=== PATIENT | male | born 1955 | race Caucasian/White ===

== ENCOUNTER 2024-11-09 05:17 | Inpatient (IN) | payer MEDICARE, SELFPAY ==
[2024-11-07 08:33] VITALS: BMI 30.2
[2024-11-07 09:29] LABS: % Basophils 0.5 % (0-2); % Eosinophils 3.4 % (0-6); % Immature Granulocytes 0.2 % (0-0.5); % Lymphocytes 15.6 % (20.5-51.1); % Neutrophils 71.3 % (42.2-75.2); Absolute Eosinophils 0.3 10^3/uL (0-0.7); Absolute Lymphocytes 1.3 10^3/uL (1.2-3.4); Absolute Monocytes 0.7 10^3/uL (0.1-0.6); Absolute Neutrophils 5.8 10^3/uL (1.4-6.5); Hematocrit 42.9 % (39.0-52.0); Hemoglobin 14.5 g/dL (13.0-18.0); Mean Corp Hgb Conc. 33.8 g/dL (33.0-37.0); Mean Corpuscular Hgb 29.8 pg (27.0-31.0); Mean Corpuscular Volume 88.3 fL (80.0-94.0); Nucleated Red Blood Cells % 0 % (-); Platelet Count 210 10^3/uL (130-400); Red Blood Cell Count 4.86 10^6/uL (4.70-6.10); Red Cell Dist. Width 13.1 % (11.5-14.5); White Blood Cell Count 8.1 10^3/uL (4.8-10.8)
[2024-11-07 09:33] LABS: Urine Albumin Negative (Neg - Trace); Urine Bilirubin Negative (Negative); Urine Character Clear (Clear); Urine Color Yellow; Urine Glucose Negative (Negative); Urine Ketone Negative (Negative); Urine Leukocyte 3+ (Negative); Urine Nitrite Negative (Negative); Urine Occult Blood Negative (Negative); Urine Urobilinogen Negative (Neg - 1+)
[2024-11-07 09:36] LABS: INR 0.92; PT 12.8 Sec (11.4-14.6)
[2024-11-07 09:37] LABS: APTT 30.7 Sec (23.4-35.0)
[2024-11-07 09:46] LABS: ALT (SGPT) 47 U/L (0-50); AST (SGOT) 23 U/L (17-59); Albumin 4.5 g/dl (3.5-5.0); Alkaline Phosphatase 76 U/L (38-126); Blood Urea Nitrogen 25 mg/dl (9-20); Calcium 9.3 mg/dl (8.4-10.2); Carbon Dioxide 25 mmol/L (22-30); Chloride 108 mmol/L (98-107); Estimated Creatinine Clearance 85 ml/min; Glucose 104 mg/dl (70-99); Potassium 4.4 mmol/L (3.5-5.1); Sodium 143 mmol/L (135-145); Total Bilirubin 0.8 mg/dl (0.2-1.3); Total Protein 6.7 g/dl (6.3-8.2); eGFR > 60.00
[2024-11-07 10:17] LABS: Direct Bilirubin 0.2 mg/dl (0.0-0.4)
--- NOTE | 2024-11-07 10:23 | CM ---
Met with and Mrs. Miles in [facility]. He states prior to admission he resides with his spouse in a three story townhouse with eleven steps to enter the home. He states he has a full flight of steps to get to bedroom/full bathroom. He states he
has to go down a full flight of steps to get to the powder room. He states prior to admission he was independent with ambulation and adls. He states he does not have any DME in the home. He states he has a prescription plan and uses [facility].
His spouse states she is planning on working from home for two weeks to assist in his care if needed when he goes home. Medical work-up in progress. The discharge plan is to return home with his spouse and a home visit by the Transitional Care
Nurse if in their catchment area or [facility] when medically stable.
We reviewed pre-op and post-op routines. We reviewed the shower instructions. He has the soap, written instructions and the Cardiothoracic Surgery Educational Booklet. We reviewed restrictions including sternal precautions and driving
restrictions. We also discussed a home visit by the Transitional Care Nurse. He is agreeable to a home visit. The plan is for CABG on Tuesday11/09/24.
[2024-11-07 11:03] LABS: Urine Bacteria Few (Negative); Urine Epithelial Cast 0-2 /LPF; Urine Mucus Few; Urine Red Blood Cell 0-2 /HPF (0-2)
[2024-11-07 11:47] LABS: Glycohemoglobin (HgbA1c) 5.6 % (4.0-5.6)
[2024-11-07 14:07] LABS: Urine Squamous Cell 0-2 /LPF (Few)
[2024-11-09] VITALS (7 sets, daily range): BP systolic 93–201; BP diastolic 61–101; BMI 28.0
[2024-11-09] MEDS: PROTONIX 40 MG PO (05:36)
[2024-11-09] MEDS: MAGNESIUM OXIDE 500 MG PO (05:37)
[2024-11-09] MEDS: LOPRESSOR 25 MG PO (05:38)
[2024-11-09] MEDS: BACTROBAN 2% OINTMENT 1 APPLIC NASAL ×2 (05:38→19:53)
--- NOTE | 2024-11-09 06:17 | W.CVOR.SURPR ---
CVOR Surgeon Immed Pre Op
-
I have examined this patient prior to performance of the scheduled procedure.
The patient's condition is unchanged from the time of the dictated/written History and
Physical and the patient is able to undergo the scheduled procedure.
CABG + Radial
--- NOTE | 2024-11-09 06:42 | PTCARENOTE ---
Patient arrived at 0500. Asked admission questions, clipped and prepped patient, preop medications administered. Patient transferred over to CVOR at 0630.
[2024-11-09 07:15] LABS: ACT+ - POC 93 Seconds (82-134)
[2024-11-09 07:19] LABS: B.E. - POC 0.9 mmol/L; Glucose - POC 116 mg/dl (70-99); HCO3 - POC 26 mmol/L (21-28); Hematocrit - POC 38 % PCV (42-52); Hemodilution- POC No; Hemoglobin Calculated - POC 12.9; Ionized Calcium - POC 1.21 mmol/L (1.15-1.33); O2 Saturation %Calculated-POC 99.1 % (94-98); PCO2 - POC 42 mmHg (35-48); PO2 - POC 136 mmHg (83-108); Sodium - POC 145 mmol/L (136-145); Specimen Type - POC Arterial
[2024-11-09 07:27] LABS: Urine Albumin Negative (Neg - Trace); Urine Bilirubin Negative (Negative); Urine Character Clear (Clear); Urine Color Yellow; Urine Glucose Negative (Negative); Urine Ketone Negative (Negative); Urine Leukocyte 3+ (Negative); Urine Nitrite Negative (Negative); Urine Occult Blood 1+ (Negative); Urine Urobilinogen Negative (Neg - 1+)
[2024-11-09 07:51] LABS: Urine Bacteria Moderate (Negative); Urine Red Blood Cell 0-2 /HPF (0-2); Urine White Cell 16-20 /HPF (0-5)
[2024-11-09 07:52] LABS: Urine Amorphous Seen
--- NOTE | 2024-11-09 08:35 | CM ---
Reviewed chart. Mr. Miles is in the operating room today. Prior to admission he resides with his spouse in a three story townhouse with eleven steps to enter. He has a full flight of steps to get to bedroom/full bathroom. He has a flight of
steps to go down to the powder room. Prior to admission he was independent with ambulation and adls. He does not have any DME in the home. He has a prescription plan and uses [facility]. His spouse is planning to signal worker for two weeks when
he goes home to assist in his care if needed. Medical work-up in progress. The discharge plan is to return home with his spouse and a home visit by the Transitional Care Nurse if in their catchment area or [facility] when medically stable.
[2024-11-09 09:26] LABS: ACT+ - POC 534 Seconds (82-134)
[2024-11-09 10:00] LABS: ACT+ - POC 552 Seconds (82-134)
[2024-11-09 10:26] LABS: ACT+ - POC 516 Seconds (82-134)
[2024-11-09 10:49] LABS: B.E. - POC 4.5 mmol/L; Glucose - POC 209 mg/dl (70-99); HCO3 - POC 31 mmol/L (21-28); Hematocrit - POC 32 % PCV (42-52); Hemodilution- POC Yes; Ionized Calcium - POC 1.09 mmol/L (1.15-1.33); Lactate - POC 0.72 mmol/L (0.36-0.75); O2 Saturation %Calculated-POC 99.8 % (94-98); PCO2 - POC 51 mmHg (35-48); PO2 - POC 236 mmHg (83-108); Potassium - POC 4.4 mmol/L (3.5-5.1); Sodium - POC 143 mmol/L (136-145); Specimen Type - POC Arterial; pH - POC 7.38 (7.35-7.45)
[2024-11-09 10:58] LABS: ACT+ - POC 486 Seconds (82-134)
[2024-11-09] MEDS: ANCEF 10 IV ×2 (11:27→13:14)
[2024-11-09 11:42] LABS: B.E. - POC 2.4 mmol/L; Glucose - POC 149 mg/dl (70-99); HCO3 - POC 28 mmol/L (21-28); Hematocrit - POC 33 % PCV (42-52); Hemodilution- POC Yes; Hemoglobin Calculated - POC 11.2; Ionized Calcium - POC 1.11 mmol/L (1.15-1.33); O2 Saturation %Calculated-POC 99.8 % (94-98); PCO2 - POC 47 mmHg (35-48); PO2 - POC 245 mmHg (83-108); Potassium - POC 3.7 mmol/L (3.5-5.1); Sodium - POC 146 mmol/L (136-145); Specimen Type - POC Arterial; pH - POC 7.38 (7.35-7.45)
[2024-11-09 11:45] LABS: ACT+ - POC 109 Seconds (82-134)
[2024-11-09 12:01] LABS: B.E. - POC 5.4 mmol/L; Glucose - POC 176 mg/dl (70-99); HCO3 - POC 32 mmol/L (21-28); Hematocrit - POC 31 % PCV (42-52); Hemodilution- POC Yes; Hemoglobin Calculated - POC 10.5; Lactate - POC < 0.30 mmol/L (0.36-0.75); O2 Saturation %Calculated-POC 99.9 % (94-98); PCO2 - POC 55 mmHg (35-48); PO2 - POC 310 mmHg (83-108); Potassium - POC 5.4 mmol/L (3.5-5.1); Sodium - POC 142 mmol/L (136-145); Specimen Type - POC Arterial; pH - POC 7.37 (7.35-7.45)
--- NOTE | 2024-11-09 12:09 | CON.INTV ---
Consultation
Consultation Request
Date/Time Consultation Requested: 11/09/2024 - 1203
Date/Time Consultation Performed: 11/09/2024 - 1207
Requesting Provider: FATOU Aggarwal
Performing Provider: Dr. Shoemaker
Reason for Consultation: s/p CABG
Medical History
-
Chief Complaint: Elective CABG
History of Present Illness:
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
exertional claudication of LLE, history of diverticulosis, history of COPD, and GAMBELL who presents with CABG. Patient known to the cardiothoracic surgery service with Dr. England, last visit on 10/26/2024. Patient has a 2 cm sooner resident
pseudoaneurysm of the left and was supposed to get stented so part of the cardiac workup was a stress test which was found to be abnormal. Cardiac catheterization on 10/12/2024 was found to show triple-vessel CAD. Per documentation, he has
significant proximal tubular to mid 70% LAD lesion for a large LAD vessel that wraps around the apex. Also a 90% stenotic lesion of the first lateral marginal branch and a mid RCA lesion of 70% as well as a mid PDA lesion of 90%. Surgical
revascularization was discussed and patient agreed to the procedure. Today patient underwent CABG x4 with left atrial appendage exclusion with 35mm device and aortoplasty with bovine pericardial patch due to extensive calcification , and was
transferred to the CVICU postoperatively. Electrical Journeyman service is now consulted for additional management/recommendations.
When I saw the patient he was resting in bed in no acute distress, intubated on SIMV at 14/500/40%/5, with PIP: 11 cmH2O, breathing at 16 breaths/min, and VTe at 389 mL. Heart rate 70, BP via right radial A-line: 106/67, and saturating 94%. Left
pleural chest tube + mediastinal chest tubes x [address]. Currently on Levophed at 1mcg/min, Cardene at 2mg/hr, insulin at 3.5 units/hr and Precedex at 0.4 mcg/kg/hr.
PMHx: Severe multivessel CAD, PAD, BPH, hyperlipidemia, hypertension, history of cardiac arrest due to subarachnoid hemorrhage due to JEN aneurysm s/p coiling (01/2024) with repeat coiling (08/2024) with no residual deficits, history of
pseudoaneurysm s/p coiling ([facility]), history of tobacco abuse, exertional claudication of left lower extremity, diverticulosis, history of COPD, right knee arthritis, torn meniscus of right knee s/p arthroscopic surgery, slightly hard of
hearing
PSHx: Coiling of JEN (02/02) with repeat coiling (09/04), right knee arthroscopy for torn meniscus
Past Medical History
Past Medical History: Other (Above as per HPI)
Past Surgical History: Other (Above as per HPI)
Social History
Tobacco: Smoker (Smokes 0.25PPD - previously smoked 1 PPD since age 20)
Alcohol: None
Drug: None
Personal:
Living: With Family
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
Family History
Family History: CAD (Brother: History of cardiac stent) and Cancer (Father: Prostate cancer; mother: Pancreatic cancer)
Allergies / Home Medications
Allergies
Allergy/AdvReac Type Severity Reaction Status Date / Time
No Known Allergies Allergy Verified 11/02/24 11:34
Home Medications
�Medication �Instructions �Recorded �Confirmed �Last Taken �Type
aspirin 81 mg tablet,delayed 81 mg PO DAILY 11/02/24 11/09/24 11/08/24 History
release
atorvastatin 40 mg tablet 40 mg PO HS 11/02/24 11/09/24 11/08/24 History
finasteride 5 mg tablet 5 mg PO QPM 11/02/24 11/09/24 11/08/24 History
lisinopril 20 mg tablet 20 mg PO HS 11/02/24 11/09/24 11/06/24 History
metoprolol succinate 25 mg 25 mg PO DAILY 11/02/24 11/09/24 11/08/24 History
tablet,extended release 24 hr
bvbxsqdw-wi-rptab 300 mcg-K 60 1 tab PO DAILY 11/02/24 11/09/24 11/06/24 History
mcg-lycop 600 mcg-lutein 300 mcg
tablet (Centrum Silver Men)
tamsulosin 0.4 mg capsule 0.8 mg PO QPM 11/02/24 11/09/24 11/08/24 History
Review of Systems
-
Unable to Obtain full review of systems at this time due to: Patient Intubation
Vitals / Labs / Diagnostic Testing
Vital Signs
Temp Pulse BP Pulse Ox
97.9 F 58 194/101 96
11/09/24 05:49 11/09/24 05:49 11/09/24 05:38 11/09/24 05:49
Microbiology
11/07/24 09:13 Urine Urine Culture - Final
NO GROWTH
11/07/24 09:05 Nose MRSA Screen - Final
No Methicillin Resistant Staphylococcus aureus isolated.
Diagnostic Testing:
Physical Exam
-
HEENT: Normocephalic, Anicteric and Other (ETT in place)
Cardiovascular: S1/S2 and Peripheral Edema (negative)
Respiratory: Wheeze (negative), Rales (negative), Rhonchi (negative), Non-Labored Respirations and Other (Mechanical breath sounds heard bilaterally)
GI: Soft, Non Distended, Non Tender and Normal Bowel Sounds
Neurology: Tremors (negative) and Other (Sedated)
Skin: Warm and Dry
General: Respiratory Distress (negative), Comfortable, Fever (negative) and Chills (negative)
Assessment
-
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
deficits, exertional claudication of LLE, history of diverticulosis, history of COPD, and GAMBELL who presents with CABG. Patient known to the cardiothoracic surgery service with Dr. England, last visit on 10/26/2024. Patient has a 2 cm sooner resident
pseudoaneurysm of the left and was supposed to get stented so part of the cardiac workup was a stress test which was found to be abnormal. Cardiac catheterization on 10/12/2024 was found to show triple-vessel CAD. Per documentation, he has
significant proximal tubular to mid 70% LAD lesion for a large LAD vessel that wraps around the apex. Also a 90% stenotic lesion of the first lateral marginal branch and a mid RCA lesion of 70% as well as a mid PDA lesion of 90%. Surgical
revascularization was discussed and patient agreed to the procedure. On 11/09/2024, patient underwent CABG x 4 with left atrial appendage exclusion with 35mm device and aortoplasty with bovine pericardial patch due to extensive calcification, and
was transferred to the CVICU postoperatively. Electrical Journeyman service is now consulted for additional management/recommendations.
Chronic conditions DOG BEHAVIORIST: Severe multivessel CAD, PAD, BPH, hyperlipidemia, hypertension, history of cardiac arrest due to subarachnoid hemorrhage due to JEN aneurysm s/p coiling (01/2024) with repeat coiling (08/2024) with no residual deficits,
history of pseudoaneurysm s/p coiling ([facility]), history of tobacco abuse, exertional claudication of left lower extremity, diverticulosis, history of COPD, right knee arthritis, torn meniscus of right knee s/p arthroscopic surgery,
slightly hard of hearing
Impression:
#Multivessel CAD s/p CABG x 4 with left atrial appendage exclusion with 35mm device and aortoplasty with bovine pericardial patch due to extensive calcification (POD #0)
#Acute anemia due to above
#Abnormal urinalysis with +3 leukocyte esterase and 16�20 urine WBC concerning for UTI
#History of cardiac arrest due to subarachnoid hemorrhage due to JEN aneurysm s/p coiling with no residual deficits
#Active tobacco use, currently 0.25 PPD, previously 1 PPD since age 20
#History of diverticulosis
#History of COPD
#Tobacco use disorder (smokes 0.25PPD - previously smoked 1 PPD since age 20)
Plan:
Ventilator settings reviewed
FiO2 will be weaned to maintain SpO2 >90-94%
Minute ventilation will be adjusted
Arterial blood gases will be monitored
Spontaneous breathing trial will be attempted with hopeful extubation after anesthesia/sedation wear off
prn nebulized bronchodilators � not currently bronchospastic
Pulmonary artery catheter parameters will be followed
Pressors/antihypertensive/inotropes/diuretics will be provided as needed
Maintain MAP>65
Replete electrolytes with K>4, Mg>2
Monitor chest tube output (left pleural chest tube x 1+ mediastinal chest tubes x 2)
Monitor hemoglobin
Monitor platelet count and coags
Transfuse blood products as needed to maintain Hb>7g/dL, plt>50k (given post-operative status)
CT surgery managing chest tubes
Monitor blood sugar to maintain euglycemia with goal BG 140-180
Insulin drip per protocol
Patient's urinalysis is suggestive of UTI. Patient is currently on Ancef. Follow-up urine culture and consider continuing antibiotics to complete 5 to 6 days total.
Aspiration precautions
VAP prevention protocol
DVT prophylaxis
Early nutrition
Early mobilization
Critical care statement: A total of 46 minutes of critical care time was provided for this patient today. This includes management of ventilator, spontaneous breathing trial, arterial blood gases, pressors, of unstable vital signs, evaluation of the
patient at bedside, reviewing the patient's pertinent medical records including radiographs, microbiology, laboratory evaluations, and discussion with primary team and critical care nursing.
--- NOTE | 2024-11-09 12:22 | W.PN.CT.SURG ---
CT Surgery Operative Note
-
CARDIAC SURGERY OPERATIVE REPORT
Preoperative Diagnosis: Multivessel Coronary Artery Disease
Postoperative Diagnosis: Same, with extensive atherosclerotic disease of the ascending and arch of the aorta
Procedure(s) Performed:
1. Standard sternotomy with aortic and right atrial cannulation
2. Harvesting of internal mammary artery
3. Multi arterial coronary artery bypass grafting x 4 (In situ FROST to LAD, Ao to left radial to OM, Ao to RSVG to acute marginal sequential to RPDA)
4. Left atrial appendage exclusion [35 mm device]
5. Endoscopic vein harvesting of right lower extremity and endoscopic harvest of the left radial artery
6. Placement of temporary ventricular pacing wires
7. Aortoplasty with bovine pericardial patch due to extensive calcification, atherosclerotic disease and focal dissection of the ascending aorta
8. Transesophageal echocardiography
9. Epiaortic ultrasound
Date of Surgery: 11/09/2024
Comorbidities:
1. Extensive three-vessel coronary artery disease
2. 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
3. Placement of intracranial shunt towards the abdomen for hydrocephalus
4. Tobacco abuse
5. Obesity
6. COPD
7. Hypertension
8. Hyperlipidemia
9. Peripheral artery disease
10. Pulmonary nodules
Attending Surgeon: Ramses England MD, MS
Assistants: Kelly Fernando PA-C (present and necessary to service assistant, endoscopic left radial artery harvest, retraction, suction, exposure, suture management, and wound closure under my direction) & Heaven Camacho PA-C (endo vein harvest)
Anesthesiology: Artemio Hutchins MD and Marina Coburn CRNA
Scrub and Circulating RNs: Araceli Llamas, DINORA, Jeb Mccloud RN
Jet Worker: Mis Vanessa CCP
Anesthesia: GETA
EBL: per perfusion records
Products: None
CPB Time: 99 minutes
Aortic Cross Clamp Time: 83 minutes
Implants: 35mm clip, SN: [id number], bovine pericardium, SN [id number]
Indication(s) for Procedures: This is a 69-year-old male with significant peripheral vascular disease. He also recently had a subarachnoid aneurysm that underwent coiling due to subarachnoid hemorrhage. He developed hydrocephalus post procedurally
and required an intracranial shunt that is now draining down toward his abdomen. His left heart cath was done due to an abnormal stress test as part of his preoperative workup and he was found to have significant triple-vessel coronary artery
disease. Given his disease pattern, he was offered surgical revascularization as the primary modality for treatment. Neurosurgery clearance was obtained.
Conduit(s) Quality:
FROST -skeletonized/excellent
RSVG -good/minor varicosities but overall good quality vein with uniform in size
Left radial�excellent no focal dissections
Target(s) Quality:
RPDA -excellent/good quality target although diffusely disease, mean flow of approximately 30 cc a minute at a pressure of 80. This was done as part of a sequential graft to an acute marginal, which also was large in size and had a mean flow
overall in the sequential graft approximately 40 to 50 cc a minute at a pressure of 80. Flow probe assessment of the graft yielded a mean flow of 38 cc a minute at a pulsatile index of 1.9
OM -first lateral marginal branch, excellent quality/large sized target the radial was grafted here, test dosing of antegrade with an Angiocath yielded a mean flow of approximately 50 cc a minute at a pressure of 80 mmHg, flow probe assessment
yielded a mean flow of approximately 30 cc a minute at a pulsatility index of 4.2
LAD -excellent/good size, mean flow was approximately 15 cc a minute with a pulsatile index of 3.9, there is good visual flow and filling of the LAD territory upon removal of the bulldog clamp
Findings: His left ventricular ejection fraction preoperatively was 60% with no significant regional wall motion abnormalities. Following surgery his EF remained the same with no new regional wall motion abnormalities. He had extensive
atherosclerotic disease of the distal arch and descending thoracic aorta. There is moderate scattered calcification of the ascending thoracic aorta. The FROST was harvested in a skeletonized fashion. Following bypass grafting, test dose cardioplegia
was given down each distal and confirmed patency and hemostasis. On the attempt to perform proximal anastomoses. He had soft plaque on the anterior surface of the aorta which tore. In order to perform proximal anastomoses in a safe manner, I
resected the entirety of the anterior surface of the diseased area and replaced this with bovine pericardial patch. I then performed 2 small holes in the patch and enlarged with a 4.0 mm punch and then perform the proximal anastomosis onto the
patch accordingly. His left atrial appendage was verified to be free of any thrombus or debris preoperatively and found to be totally occlusive with a 35 mm device postoperatively. Ligament Nick was divided. Epiaortic ultrasound was used in
order to identify a safe cannulation site that was free of disease.
Description of Procedure: The patient was taken to the operating room. Their identity and procedure to be performed were verified and they were positioned supine on the operating table. Induction via general anesthesia with endotracheal intubation
was performed and central venous access and arterial monitoring were inserted. A preoperative transesophageal echocardiogram was performed to assess cardiac function and valvular function. The patient was then prepped and draped from chin to feet in
a sterile fashion. A preoperative time-out was performed with all members of the team present. A midline chest incision was performed along with median sternotomy. Simultaneous endoscopic access of the right lower extremity for saphenous vein and
the left arm for radial artery harvest was obtained along with administration of an initial 5,000 units of IV heparin. A RulTract sternal retractor was positioned to exposure the left internal mammary bed. The mammary was harvested and found to have
good flow. A bulldog clamp was applied to the distal end of the mammary after dividing it. It was wrapped in a papaverine soaked RayTec and replaced back into the left hemithorax. The RulTract was exchanged for a median sternal retractor. The
innominate vein was isolated. Full heparinization was given (a total of 47,500 units). We created a pericardial well. The aortic cannulation site was chosen where it was soft, pliable, and free of calcium. In this particular case I did use up
aortic ultrasound to identify a safe area for cannulation and for clamping. Cannulation was performed with an arterial cannula in the ascending aorta and a triple-stage venous cannula through the right atrial appendage. The arterial cannula line
had an appropriate bounce and correlating pressures with test dosing. Next, a root vent/antegrade cannula was inserted into the ascending aorta. The ACT was confirmed to be over 400 and retrograde autologous priming was performed before commencing
cardiopulmonary bypass. The pulmonary artery was away from the aorta to facilitate a clamp site. The aortic cross-clamp was placed after decreasing the flow on the bypass and mean arterial pressure. A total of 1.2L initial dose of
antegrade Del-Nido cardioplegia solution was given and planned for re-dosing every 75 minutes as necessary. There was rapid electro-mechanical arrest of the heart at 200 cc of cardioplegia. The left ventricle was observed for distention on
echocardiogram and manual palpation. Cold slush was placed into a sponge and topically on the RV while we systemically cooled to 34 degrees centigrade. Once the heart was fully arrested, was rotated medially and the left atrial appendage was
clipped with a 35mm device and the ligament of Nick was divided.
I positioned the heart to expose the distal right coronary at the posterior descending artery. A elim ira blade was used to expose the coronary and perform the arteriotomy. Coronary Sinclair scissors were used to enlarge the incision. The saphenous vein
was trimmed and beveled to an appropriate size. The distal anastomosis was performed using 7-0 prolene in an end-to-side fashion. Antegrade cardioplegia was administered into the graft. Appropriate hemostasis and flow were confirmed. I then
measured the graft in order to accommodate a sequential [id number]-[id number] anastomosis with an acute marginal branch that was sizable. The graft was measured and a small venotomy was created on the underbelly of the vein graft. A coronary arteriotomy
was created and enlarged. An tlye-js-npxc anastomosis was created with 7-0 Prolene in a running fashion. A bulldog clamp was placed on the distal part of the sequential graft and test dosing antegrade was given down the graft to verify both
hemostasis and flow. The graft was measured for length to the aorta and cut. A suitable site on the obtuse marginal was chosen. The radial artery was then beveled accordingly at the distal end. We dissected and prepared the distal target in a
similar fashion. An end-to-side anastomosis was created with a 7-0 prolene. Antegrade cardioplegia was administered into the graft with the aid of an Angiocath. Appropriate hemostasis and flow were confirmed. The graft was measured for length to the
aorta and cut. A suitable target on the mid/distal left anterior descending was identified. We dissected and prepared the distal target in a similar fashion. We retrieved the FROST from the chest and created a pericardial opening while being
cognizant of the phrenic nerve to facilitate the course of the mammary. The distal end of the mammary was prepped and beveled to size. We verified orientation and length of the VITA and found brisk flow. An end-to-side anastomosis was created with a
7-0 prolene. We temporarily released the bulldog clamp on the mammary to inspect flow. Perfusion to the LAD territory was visualized and hemostasis was confirmed. The bull clamp was replaced on the mammary. The heart was filled and the root was
distended with antegrade cardioplegia to make final assessment of graft length and orientation. 1 arteriotomy was created without issue. However the second arteriotomy towards the anterior side of the ascending aorta was over a area of soft plaque
resulting in a focal dissection of the anterior ascending aorta. In order to safely perform the proximal anastomosis, I incised the aorta and resected this disease portion until there was relatively healthy tissue. A bovine pericardial patch was
fashioned into an elliptical shape approximately 4 x 2-1/2 cm along with 2 strips of bovine pericardium to be used as a gasket. Once the ascending aortic tissue was resected, I patched the ascending aorta with 4-0 Prolene from apex to apex. I then
created 2 small holes in the bovine pericardial patch and enlarged them with a 4.0 mm punch. The proximal anastomoses were created in an end-to-side fashion using 6-0 prolene for the vein graft and 7-0 Prolene for the radial graft. At the the same
time, we re-warmed to 36.5 degrees centigrade. The bulldog clamp was removed from the mammary. Temporary bipolar ventricular pacing wires were placed on the base of the right ventricle. The patient was placed in a Trendelenburg position and flows on
bypass were lowered. The aortic cross clamp was removed and flows were slowly brought back up. All bypass grafts were inspected and were free from kinking or twisting. The distal and proximal anastomoses appeared hemostatic. Hemostatic agent was
packed around the patch area repair site. Once transesophageal echocardiography appeared satisfactory for de-airing, the flows were temporarily lowered for root vent removal. After verifying acceptable parameters, we initiated weaning from
cardiopulmonary bypass. Once we were off cardiopulmonary bypass, the venous cannula was clamped and removed. A test dose of protamine was administered and the patient was monitored for any adverse reaction before resuming protamine. Once half of the
protamine dose was delivered, pump suckers were turned off and the systolic blood pressure was lowered for aortic decannulation. The aortic cannula was removed and pursestrings were tied down. All cannulation sites were oversewn with a 4-0 prolene.
The mammary bed was inspected and hemostasis was confirmed. Once the mediastinum was hemostatic, 19Fr Rich drain was placed in the left pleural cavity and two 24Fr Rich drains were placed within the pericardium. The sternum was approximated with 4
#7 single and 3 #8 double stainless steel wires. Fascia was approximated with #1 vicryl suture. The subcutaneous, dermis and epidermis were closed in layers in a running fashion. The skin wound was cleansed and dressed.
All instrument, sponge, and needle counts were confirmed to be correct x 2 at the end of the operation. The patient was transferred to the cardiac intensive care unit in critical but stable condition.
I, Dr. Ramses England, was present, scrubbed for, and performed all critical elements of this procedure.
Ramses England MD, MS
Cardiothoracic Surgeon
[facility]
This operative dictation was created using the [email or web address] dictation system. Please excuse any grammatical, typographical, or 'sound alike' errors
[2024-11-09 12:37] LABS: Glucose - Point of Care 115 mg/dl (70-99)
[2024-11-09 12:47] LABS: HCO3 22.7 mmol/L (21-28); O2 Saturation % 96.1 % (94-98); PCO2 43 mmHg (35-48); Potassium 3.3 mMOL/L (3.5-5.1); Sodium 141 mMOL/L (136-145); pH 7.33 (7.35-7.45)
[2024-11-09 12:50] LABS: B.E. -3.2 mmol/L
[2024-11-09 12:51] LABS: Hematocrit 29.2 % (39.0-52.0); Hemoglobin 9.8 g/dL (13.0-18.0); Platelet Count 110 10^3/uL (130-400)
[2024-11-09 12:53] LABS: O2 Therapy vent; PO2 104 mmHg (83-108)
[2024-11-09 12:58] LABS: PT 18.3 Sec (11.4-14.6)
[2024-11-09 12:59] LABS: APTT 29.5 Sec (23.4-35.0)
[2024-11-09] MEDS: KCL 50 IV ×2 (13:13→15:06)
[2024-11-09] MEDS: TYLENOL PO (13:13)
[2024-11-09] MEDS: NEURONTIN PO ×2 (13:14→16:41)
[2024-11-09 13:16] LABS: Blood Urea Nitrogen 22 mg/dl (9-20); Estimated Creatinine Clearance 92 ml/min; Glucose 107 mg/dl (70-99); Magnesium 2.7 mg/dl (1.6-2.3)
[2024-11-09 13:29] LABS: Glucose - Point of Care 157 mg/dl (70-99)
--- NOTE | 2024-11-09 13:45 | W.PN.UPDATE ---
Update Note
Progress Note Update
62 male was electively admitted 11/09/2024 for CABG due to severe multivessel disease and preserved EF.
IV fluids: 2300
U.O.:� 750
Blood:� none
Wires:� 2 atrial and 1 bipolar ventricular wires
Infusions: Levo @ 2, Cardene @ 2, Insulin, Precedex @ 0.8
�
NEURO: sedated, pupils +2mm B/L
RESP: #8OT @23cm> 500/60%/14/5. Lungs clear B/L. 2 mediastinal (5cc on arrival) and L pleural (0cc on arrival) chest tubes to -20cm suction. Sanguineous drainage
CV: RRR +S1, S2, no S3, no�rub, no murmur. Dermabond to median sternotomy. LIJ intact. AV paced>CHB underneath
ABD: round, soft, no BS
EXT: no edema, +2/4 DP pulses B/L, no femoral bruit, RLE ALEX wrap intact; right radial A-line intact
: Solorio with clear yellow urine
�
A/P: POD #0 s/p CABG x 4 FROST to LAD, left radial to OM, RSVG to acute marginal sequential to RPDA. Left atrial appendage exclusion [#35 mm device]
PEPITO: EF�55-60%
- wean and extubate
- Cardene>Norvasc x 3 months for radial graft patency
# CAD
- will require ASA, Plavix, statin, beta-usha
�
# acute surgical blood loss anemia-expected
- trend CBC
# HTN
- resume ACEI as BP permits
�
# BPH
- will resume Proscar/Flomax as BP permits
[2024-11-09] MEDS: CALCIUM GLUCONATE 100 IV (13:50)
[2024-11-09] MEDS: DILAUDID 0.25 MG IV ×2 (14:46→18:36)
[2024-11-09] MEDS: NSS 500 IV (14:47)
[2024-11-09 14:54] LABS: Glucose - Point of Care 112 mg/dl (70-99)
[2024-11-09 15:00] LABS: B.E. -1.4 mmol/L; HCO3 24.8 mmol/L (21-28); Ionized Calcium 1.25 mMOL/L (1.15-1.33); O2 Saturation % 93.6 % (94-98); PCO2 47 mmHg (35-48); PO2 78 mmHg (83-108); pH 7.33 (7.35-7.45)
[2024-11-09 15:05] LABS: Hemoglobin 11.2 g/dL (13.0-18.0); Platelet Count 150 10^3/uL (130-400)
[2024-11-09 15:07] LABS: O2 Therapy 40%
--- NOTE | 2024-11-09 15:12 | PTCARENOTE ---
extubated to 6L nc with TEASEL GIG OPERATOR
--- NOTE | 2024-11-09 15:15 | RESPNOTE ---
Respiratory: patient was extubated without incident, no stridor. SpO2 93% on 6 LPM nasal cannula.
[2024-11-09] MEDS: DILAUDID 0.5 MG IV ×2 (15:16→19:52)
--- NOTE | 2024-11-09 15:45 | W.PN.CD ---
Addendum entered and electronically signed by Herminio Henson MD 11/09/24 17:24:
I saw and examined the patient.
The COMPUTER SYSTEMS SECURITY ADMINISTRATOR's note was reviewed and I agree with the note.
Comment:
69-year-old man (H patient) with multivessel coronary artery disease, hypertension, hyperlipidemia, subarachnoid hemorrhage with [employer]IST[employer] shunt who presents for CABG. Underwent CABG x 4 (FROST to LAD, left radial to OM, RSVG to acute marginal sequential
to RPDA. Left atrial appendage exclusion #35 mm device) today 11/09/24. At the time of my exam, he is extubated, breathing comfortably on nasal cannula, RRR, systolic murmur, no lower extremity edema, sternal wound looks okay, chest tubes in place.
He is AV paced on telemetry and postop ECG. He is not on any vasoactive infusions. Resume GDMT as tolerated. Continue aspirin and statin. Continue to monitor for underlying rhythm. Routine postoperative care per CT surgery.
Original Note:
Today's Communication / Plan
-
routine post op care per CT surgery.
Impression / Plan
-
CAD - s/p CABG x 4 (FROST to LAD, left radial to OM, RSVG to acute marginal sequential to RPDA. Left atrial appendage exclusion #35 mm device) today 11/09/24.
- intubated/sedated on vent post-op.
- routine post-op per CT surgery.
- AV pacing on tele/EKG.
HTN - stable, monitor post-op.
HLD - on Lipitor, continue.
- LDL goal < 55.
Anemia - acute post-op, monitor.
BPH - stable on meds.
H/o cardiac arrest due to subarachnoid hemorrhage due to JEN aneurysm s/p coiling (01/2024) with repeat coiling (08/2024) - stable, no residual deficits.
Physical Exam
Vital Signs/Labs
Vital Signs
Temp Pulse Resp BP Pulse Ox
98 F 70 14 194/101 94
11/09/24 14:00 11/09/24 13:00 11/09/24 13:00 11/09/24 05:38 11/09/24 14:18
11/08/24 11/09/24 11/10/24
06:59 06:59 06:59
Actual Weight 175 lb 11.335 oz 173 lb 4.533 oz
11/09/24 14:50
11/09/24 12:33
PT 18.3 Sec (11.4-14.6) H 11/09/24 12:33
INR 1.50 11/09/24 12:33
APTT 29.5 Sec (23.4-35.0) 11/09/24 12:33
Magnesium 2.7 mg/dl (1.6-2.3) H 11/09/24 12:33
Physical Exam
Constitutional: No acute distress
EENT: Moist mucous membranes and Other (ET tube in place)
Cardiovascular: Rhythm & rate is regular
Respiratory: Respiratory effort normal and Lungs clear to auscul. (anteriorly; intubated on vent)
GI: Soft and Distention absent
Neuro/Psych: Other (intubated/sedated on vent)
Other: Skin (warm, dry)
Data Reviewed
-
Date of Service: November 09, 2024
Medical Decision Making: Reviewed Test Results
EKG: Tracing Personally Visualized and interpreted
Labs: Labs Reviewed by me
[2024-11-09 16:13] LABS: Glucose - Point of Care 106 mg/dl (70-99)
[2024-11-09 17:18] LABS: B.E. - POC 1.2 mmol/L; Glucose - POC 95 mg/dl (70-99); HCO3 - POC 27 mmol/L (21-28); Hematocrit - POC 30 % PCV (42-52); Hemodilution- POC No; Hemoglobin Calculated - POC 10.4; Ionized Calcium - POC 1.39 mmol/L (1.15-1.33); Lactate - POC 2.61 mmol/L (0.36-0.75); O2 Saturation %Calculated-POC 99.9 % (94-98); PCO2 - POC 49 mmHg (35-48); PO2 - POC 293 mmHg (83-108); Potassium - POC 3.7 mmol/L (3.5-5.1); Sodium - POC 147 mmol/L (136-145); Specimen Type - POC Arterial; pH - POC 7.36 (7.35-7.45)
[2024-11-09] MEDS: TYLENOL 650 MG PO (17:34)
[2024-11-09] MEDS: ROXICODONE 5 MG PO ×2 (17:34→22:23)
[2024-11-09 17:38] LABS: Glucose - Point of Care 95 mg/dl (70-99)
[2024-11-09] MEDS: ANCEF 5 IV (19:52)
[2024-11-09] MEDS: SENOKOT-S 1 TABLET PO (19:53)
--- NOTE | 2024-11-09 20:00 | PTCARENOTE ---
assumed care of pt from previous RN. pt A&Ox4, resting in bed s/p CABG. pt 100% A/V w/ temp epicardial wires. settings DDD 70/10/10/05/30. POX 94-96% on 6 L NC. CTx3 (mediastinal x2, L pleural) to -20cm wall suction, draining sanguineous drainage.
abd s/n, hypoactive BS. tolerating PO meds w/ sips of water. romo catheter draining clear, yellow urine. all surgical sites stable, CDI. L IJ cordis w/ SLIC. R radial a-line. all lines leveled, zeroed, flushed. PIV intact. see worklist for complete
nursing assessment, interventions, gtt titrations, VS, and I&Os.
[2024-11-09 20:06] LABS: Glucose - Point of Care 123 mg/dl (70-99)
[2024-11-09 22:08] LABS: Glucose - Point of Care 90 mg/dl (70-99)
[2024-11-09] MEDS: LIPITOR 80 MG PO (22:09)
[2024-11-09] MEDS: TYLENOL 1000 MG PO (22:09)
[2024-11-09] MEDS: NEURONTIN 100 MG PO (22:09)
[2024-11-09] MEDS: FLEXERIL 5 MG PO (22:22)
[2024-11-10] VITALS (23 sets, daily range): BP systolic 90–124; BP diastolic 61–80; PULSE 77; O2SAT 94–96; BMI 28.5
--- NOTE | 2024-11-10 | PTCARENOTE ---
assessment remains unchanged. VSS. U/O >0.5ml/kg/h. CT drainage WNL.
[2024-11-10 00:01] LABS: Glucose - Point of Care 115 mg/dl (70-99)
[2024-11-10] MEDS: CARDENE 200 IV (00:02)
--- NOTE | 2024-11-10 00:29 | W.PN.CT ---
Today's Communication / Plan
-
Plan:
-No major issues overnight. Hemodynamically and neurologically stable
-Successfully extubated yesterday 11/09 @ 1517
-Weaned off of Cardene gtt overnight, and remains on insulin gtt per protocol
-No swan, U/O 1300 mL since OR
-Required A/V pacing postop d/t bradycardia postop. Amiodarone and BB currently on hold. Pt's intrinsic rhythm is NSR @ 72 bpm this AM
-Monitor chest tube output: 2meds 250/460, L pl 120/240. CXR this AM looks clear
-Cont. current meds (ASA, Plavix, Lipitor, Flomax, Finasteride, will add Norvasc for radial artery patency; Amiodarone and BB currently on hold)
-D/C a-line and SLIC this AM @ 0530
-Will d/c romo later today to avoid issues postop urinary retention, given dependence on Flomax and Finasteride
-Will transition to tele phase today once off insulin gtt
-Maintain cordis
-Maintain temporary PW (will pull before d/c home)
-Encourage use of IS
-Wean off of O2 as tolerated
-OOB into chair/Ambulate
Assessment / Plan
-
Assessment:
-S/p Standard sternotomy/CABG X 4 (In situ FROST to LAD, Ao to left radial to OM, Ao to RSVG to acute marginal sequential to RPDA)/Harvesting of internal mammary artery/Endoscopic vein harvesting of right lower extremity and endoscopic harvest of the
left radial artery/Aortoplasty with bovine pericardial patch due to extensive calcification, atherosclerotic disease and focal dissection of the ascending aorta/ Left atrial appendage exclusion (35 mm device), by Dr. England, 11/09/24, pod#1
-Extensive three-vessel coronary artery disease
-LVEF 55-60% per intraop PEPITO
-Mildly dilated mid asc. aorta (3.8 cm)
-Moderate calcified atheroma @ desc. aorta and distal arch
-Significant calcification @ proximal asc. aorta
-Current tobacco abuse
-COPD
-Class 1 obesity (BMI 30)
-Hypertension
-Hyperlipidemia
-Peripheral artery disease with claudication
-Pulmonary nodules
-Hearing impaired (does not wear hearing aides)
-Hx cardiac arrest S/P bystander CPR
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
-S/P Placement of intracranial shunt towards the abdomen for hydrocephalus
-Acute postop blood loss/Anemia (stable without blood transfusion)
-Acute postop thrombocytopenia (stable without active bleed)
-Acute postop atelectasis
-Acute postop hypovolemia with subsequent hypervolemia
-Acute postop temporary pacer dependent d/t bradycardia
Discussed patient care with: Cardiology, Nursing, Respiratory Therapy, Pharmacy and Care Team
Subjective
Procedure
S/p Standard sternotomy/CABG X 4 (In situ FROST to LAD, Ao to left radial to OM, Ao to RSVG to acute marginal sequential to RPDA)/Harvesting of internal mammary artery/Endoscopic vein harvesting of right lower extremity and endoscopic harvest of the
left radial artery/Aortoplasty with bovine pericardial patch due to extensive calcification, atherosclerotic disease and focal dissection of the ascending aorta/ Left atrial appendage exclusion (35 mm device), by Dr. England, 11/09/24
-
Date of Service: November 10, 2024
Pt
Objective Data
-
PT 18.3 Sec (11.4-14.6) H 11/09/24 12:33
INR 1.50 11/09/24 12:33
APTT 29.5 Sec (23.4-35.0) 11/09/24 12:33
Vital Signs
Vital Signs
Temp Pulse Resp BP Pulse Ox
99.9 F 76 20 105/74 94
11/10/24 00:00 11/10/24 00:15 11/10/24 00:15 11/10/24 00:00 11/10/24 00:15
CT Intake/Output/Weight
11/09/24 11/09/24 11/10/24
06:59 18:59 06:59
Intake Total 371.0 / 547.1 176.1 / 547.1
Output Total 1080 / 1545 465 / 1545
Balance -709.0 / -997.9 -288.9 / -997.9
SaO2: 94
Physical Exam
-
General: Awake, Oriented and AOx3
Cardiovascular: Regular rate & rhythm, No Murmurs, No Rub and No Gallop
Respiratory: Decreased Breath Sounds
Sternum: Stable
Incision: Clean, Dry, Intact and Dressing Intact
Extremities: Other (+trace edema)
Data Reviewed
-
Lab Results: Results Reviewed
Medications: Active Meds Reviewed
ECG: Report Reviewed and Image Reviewed
[2024-11-10] MEDS: FLOMAX 0.4 MG PO (00:44)
[2024-11-10 02:08] LABS: Glucose - Point of Care 87 mg/dl (70-99)
[2024-11-10] MEDS: ANCEF 5 IV ×2 (03:30→12:08)
[2024-11-10] MEDS: ROXICODONE 5 MG PO ×4 (03:30→21:40)
[2024-11-10 04:12] LABS: Glucose - Point of Care 90 mg/dl (70-99)
--- NOTE | 2024-11-10 04:12 | PTCARENOTE ---
no acute changes. VSS. CT drainage WNL. U/O >0.5ml/kg/h. AM labs collected and sent.
[2024-11-10 04:22] LABS: Hematocrit 30.5 % (39.0-52.0); Hemoglobin 10.3 g/dL (13.0-18.0); Mean Corp Hgb Conc. 33.8 g/dL (33.0-37.0); Mean Corpuscular Hgb 30.2 pg (27.0-31.0); Mean Corpuscular Volume 89.4 fL (80.0-94.0); Mean Platelet Volume 10.2 fL (7.4-10.4); Platelet Count 156 10^3/uL (130-400); Red Blood Cell Count 3.41 10^6/uL (4.70-6.10); Red Cell Dist. Width 13.4 % (11.5-14.5); White Blood Cell Count 16.9 10^3/uL (4.8-10.8)
--- NOTE | 2024-11-10 04:30 | PTCARENOTE ---
EKG completed. CT PA Caryn paused temp pacer. pt resumed intrinsic rhythm. pt in SR w/ occasional PACs. pulse generator set to back up settings DDD 45/5/5/0.5/[address] PA Caryn.
[2024-11-10 04:49] LABS: Blood Urea Nitrogen 29 mg/dl (9-20); Calcium 8.1 mg/dl (8.4-10.2); Carbon Dioxide 23 mmol/L (22-30); Chloride 111 mmol/L (98-107); Estimated Creatinine Clearance 81 ml/min; Glucose 91 mg/dl (70-99); Magnesium 2.2 mg/dl (1.6-2.3); Potassium 4.4 mmol/L (3.5-5.1); Sodium 139 mmol/L (135-145); eGFR > 60.00
[2024-11-10] MEDS: TYLENOL 1000 MG PO ×3 (05:48→21:40)
[2024-11-10] MEDS: CALCIUM GLUCONATE 100 IV (05:48)
[2024-11-10 06:08] LABS: Glucose - Point of Care 98 mg/dl (70-99)
[2024-11-10 07:56] LABS: Glucose - Point of Care 104 mg/dl (70-99)
--- NOTE | 2024-11-10 08:25 | W.PN.INTV ---
Today's Communication / Plan
Recommendations
Encouraged incentive spirometer q1hr while awake
Maintain MAP >65
Oropharyngeal suctioning as needed
DAPT with ASA + Plavix
High intensity statin
Outpatient follow-up with cardiology + cardiothoracic surgery
Up OOB as tolerated
Goal BG 140�180
Patient has been downgraded to CVICU�telemetry status. No additional recommendations at this time. Payroll Human Resources Assistant/Pulmonary service will now sign off. Please reconsult if there are any additional questions/concerns, or if patient's respiratory
status deteriorates.
Assessment
-
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
deficits, exertional claudication of LLE, history of diverticulosis, history of COPD, and [place] who presents with CABG. Patient known to the cardiothoracic surgery service with Dr. England, last visit on 10/26/2024. Patient has a 2 cm sooner resident
pseudoaneurysm of the left and was supposed to get stented so part of the cardiac workup was a stress test which was found to be abnormal. Cardiac catheterization on 10/12/2024 was found to show triple-vessel CAD. Per documentation, he has
significant proximal tubular to mid 70% LAD lesion for a large LAD vessel that wraps around the apex. Also a 90% stenotic lesion of the first lateral marginal branch and a mid RCA lesion of 70% as well as a mid PDA lesion of 90%. Surgical
revascularization was discussed and patient agreed to the procedure. On 11/09/2024, patient underwent CABG x 4 with left atrial appendage exclusion with 35mm device and aortoplasty with bovine pericardial patch due to extensive calcification, and
was transferred to the CVICU postoperatively. Payroll Human Resources Assistant service is now consulted for additional management/recommendations.
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
history of pseudoaneurysm s/p coiling ([facility]), history of tobacco abuse, exertional claudication of left lower extremity, diverticulosis, history of COPD, right knee arthritis, torn meniscus of right knee s/p arthroscopic surgery,
slightly hard of hearing
Impression:
#Multivessel CAD s/p CABG x 4 with left atrial appendage exclusion with 35mm device and aortoplasty with bovine pericardial patch due to extensive calcification (POD #1)
#Acute anemia due to above
#Abnormal urinalysis with +3 leukocyte esterase and 16�20 urine WBC concerning for UTI
#History of cardiac arrest due to subarachnoid hemorrhage due to JEN aneurysm s/p coiling with no residual deficits
#Active tobacco use, currently 0.25 PPD, previously 1 PPD since age 20
#History of diverticulosis
#History of COPD (of note, no emphysema or evidence of chronic bronchitis seen on CT chest from 11/07/2024)
#Tobacco use disorder (smokes 0.25PPD - previously smoked 1 PPD since age 20)
Plan:
Patient was successfully extubated to nasal cannula on 11/09/2024 � now on 2 L/min nasal cannula and breathing comfortably with saturations 93-94%
Continue to wean down supplemental O2 flow rate while maintaining SpO2 88--95% (given Hx of COPD)
prn nebulized bronchodilators � not currently bronchospastic
No prior spirometry/PFTs to review - advised to have his PCP follow-up regarding his COPD, otherwise he can follow-up with us in the pulmonary office
Encouraged incentive spirometer use
Pressors/antihypertensive/inotropes/diuretics will be provided as needed
Maintain MAP>65
Replete electrolytes with K>4, Mg>2
Monitor chest tube output
Monitor hemoglobin
Monitor platelet count and coags
Transfuse blood products as needed to maintain Hb>7g/dL, plt>50k (given post-operative status)
CT surgery managing chest tubes
Monitor blood sugar to maintain euglycemia with goal BG 140-180
Insulin drip per protocol -drip is now off; continue with ISS to maintain BG goal as above
Patient's urinalysis is suggestive of UTI. Patient is currently on Ancef for perioperative purposes. Follow-up urine culture (NGTD) and consider continuing antibiotics to complete 5 to 6 days total.
Aspiration precautions
DVT prophylaxis
Early nutrition
Early mobilization
Patient has been downgraded to CVICU�telemetry status. No additional recommendations at this time. Payroll Human Resources Assistant/Pulmonary service will now sign off. Thank you for allowing us to be involved in the care of this patient. Please reconsult if there
are any additional questions/concerns, or if patient's respiratory status deteriorates.
Total time spent today was 57 minutes for this encounter. Time includes reviewing laboratory test/imaging results, reviewing pertinent medical records, obtaining and reviewing medical history, performing an appropriate exam, ordering medications,
tests and procedures. Time also includes documentation of this encounter, coordinating patient care and communicating with other healthcare professionals. Total time does not include separately billed tests performed on this date of service.
Subjective Dataa
Subjective Data
Date of Service:
Date of Service: November 10, 2024
Chief Complaint: Payroll Human Resources Assistant Follow Up
Subjective:
Patient seen and evaluated this morning. He is resting in bed in no acute distress. Heart rate 82, BP 101/65 and he is saturating 94% on 2 L/min. He has no complaints, other than feeling tired and has some chest discomfort when he takes a deep
breath.
Review of Systems
General: Other (Negative unless mentioned above)
Objective Data
Data Reviewed
Vital Signs / I&O / Oxygen:
Vital Signs
Temp Pulse Resp BP Pulse Ox
99.2 F 74 16 109/66 92
11/10/24 09:00 11/10/24 09:00 11/10/24 09:00 11/10/24 09:00 11/10/24 09:00
Intake and Output
11/09/24 11/10/24 11/11/24
06:59 06:59 06:59
Intake Total 802.2 / 813.0 33.4 / 33.4
Output Total 1969 165 / 165
Balance -1167.8 / -1232.0 -131.6 / -131.6
SaO2 [SIMV] 93
SaO2 92
Nasal Cannula flow liters per 2
minute
Physical Exam
General: Respiratory Distress (negative), Comfortable, Chills (negative) and Sweats (negative)
HEENT: Normocephalic and Anicteric
Cardiovascular: S1-S2, Rub and Peripheral Edema (negative)
Respiratory: Clear, Wheeze (negative), Crackles (negative), Rhonchi (negative), Non-Labored Respirations and Chest Tube (Mediastinal chest tubes x 2)
GI: Soft, Non Distended, Non Tender and Normal Bowel Sounds
Neurology: AO x 3 and Tremors (negative)
Skin: Warm and Dry
Labs/Micro/Reports
Lab Data
11/10/24 04:10
11/10/24 04:10
Laboratory Results
11/09/24 11/09/24
12:33 14:50
PT 18.3 H
INR 1.50
APTT 29.5
pH 7.33 L 7.33 L
pCO2 43 47
pO2 104 78 L
HCO3 22.7 24.8
O2 Delivery Level vent 40%
Microbiology
11/09/24 07:10 Urine Urine Culture - Final
NO GROWTH
11/07/24 09:13 Urine Urine Culture - Final
NO GROWTH
11/07/24 09:05 Nose MRSA Screen - Final
No Methicillin Resistant Staphylococcus aureus isolated.
[2024-11-10] MEDS: LIDOCAINE 4% PATCH 1 PATCH TOPICAL (08:58)
[2024-11-10] MEDS: LOW STRENGTH ASPIRIN 81 MG PO (08:59)
[2024-11-10] MEDS: NEURONTIN 100 MG PO ×3 (08:59→21:40)
[2024-11-10] MEDS: NORVASC 2.5 MG PO (08:59)
[2024-11-10] MEDS: MAGNESIUM OXIDE 500 MG PO ×2 (08:59→19:56)
[2024-11-10] MEDS: PROTONIX 40 MG PO (08:59)
[2024-11-10] MEDS: SENOKOT-S 1 TABLET PO ×2 (08:59→19:56)
[2024-11-10] MEDS: PLAVIX 75 MG PO (08:59)
[2024-11-10] MEDS: BACTROBAN 2% OINTMENT 1 APPLIC NASAL ×2 (08:59→19:56)
[2024-11-10] MEDS: NSS IV (09:00)
--- NOTE | 2024-11-10 09:00 | PTCARENOTE ---
Assumed care of patient. Walking rounds completed with previous RN. Pt assessed while he was sitting in the chair. Pt alert and oriented x4. GAN with equal strength throughout. Pt rates sternal pain 5/10-see MAR. Denies shortness of breath, nausea,
and dizziness. NSR with occasional PVC on tele with rates in the 70s. BP 109/66. Right radial, left ulnar pulses palpable, Bilateral DP pulses present via doppler. Generalized +1 edema noted. +Rub. Epicardial AV wires to back up 50/6/6. Thresholds
completed and adjusted appropriately. POX 96% on 4L NC, titrated to 2L NC, POX 93%. Lungs diminished in the bases. IS encouraged-1000mL achieved. No cough noted. Left pleural chest tube to -20cm suction draining red fluid. Mediastinal chest tubes x2
y-sited to 1 atrium to -20cm suction draining red fluid. No air leaks, tidaling, crepitus noted. Abdomen soft, round, nontender. Hypoactive BS. Tolerated clear liquid breakfast. Solorio draining clear yellow urine. Sternal incision approximated with
skin glue, MANAGER MECHANICAL MAINTENANCE. Chest tube dressing CDI. Left radial harvest site covered with ALEX-CDI. Right groin puncture approximated and MANAGER MECHANICAL MAINTENANCE. Right SVG harvest covered with ALEX-CDI. Left IJ cordis intact infusing NSS KVO. Right hand 18g PIV intact infusing
insulin gtt per Critical Care Glycemic Protocol. See MAR for medication administration. See worklist for complete nursing assessment. Plan of care reviewed and patient in agreement.
[2024-11-10 10:23] LABS: Glucose - Point of Care 121 mg/dl (70-99)
[2024-11-10] MEDS: LR 250 ML IV (11:11)
--- NOTE | 2024-11-10 12:00 | PTCARENOTE ---
Pt reassessed. NSR on tele with rates in the 70s. BP 94/65. POX 92% on 2L NC. Left forearm and Right leg ALEX d/c, incisions well approximated with skin glue. CT drainage WNL. UO low, CT WHITE WASHER notified. Insulin gtt d/c per CT WHITE WASHER. No other acute changes
from previous assessment.
[2024-11-10 12:07] LABS: Glucose - Point of Care 92 mg/dl (70-99)
[2024-11-10] MEDS: LR 250 IV (12:27)
--- NOTE | 2024-11-10 12:57 | W.PN.ANS.POP ---
Anesthesia Post Operative
- Anesthesia Post Op Note
Vital Signs Stable-See Nursing Note: Yes
Airway Patent: Yes
Adequate Pain Control: Yes
Change in Mental Status: No
Current Postoperative Nausea & Vomiting: No
Anesthesia Complications: No
Unplanned Admission: No
Post Op Hydration Adequate: Yes
- -
Pt doing well, OOB to chair, VSS.
[2024-11-10] MEDS: FLEXERIL 5 MG PO (14:19)
--- NOTE | 2024-11-10 16:45 | PTCARENOTE ---
Pt reassessed. NSR on tele with rates in the 80s. BP 124/75-CT COUNTY HEALTH OFFICER notified. POX 93% on 2L NC. Surgical sites stable. CT output WNL. UO increased and CT COUNTY HEALTH OFFICER notified. Pt assisted OOB to chair with 1 assist and tolerated.
[2024-11-10] MEDS: FLOMAX 0.8 MG PO (18:08)
[2024-11-10] MEDS: PROSCAR 5 MG PO (18:08)
[2024-11-10] MEDS: TOPROL XL 12.5 MG PO (19:56)
--- NOTE | 2024-11-10 20:00 | PTCARENOTE ---
assumed care of pt from previous RN. pt A&Ox4, resting in chair at time of assessment. SR on tele-monitor. temp epicardial A/V wires insulated. CTx2 (mediastinal x2) to -20cm wall suction, draining sanguineous drainage. abd s/n, +BS. romo catheter
draining clear, yellow urine. all surgical sites stable, CDI. L IJ cordis w/ KVO. PIV intact. see worklist for complete nursing assessment, interventions, VS, and I&Os.
[2024-11-10] MEDS: LIPITOR 80 MG PO (21:40)
[2024-11-10] MEDS: ProAIR HFA INHALER 2 PUFF INH (22:09)
[2024-11-11] VITALS (19 sets, daily range): BP systolic 80–133; BP diastolic 55–80; BMI 28.6
--- NOTE | 2024-11-11 00:01 | PTCARENOTE ---
assessment remains unchanged. VSS. U/O >0.5ml/kg/h. CT drainage WNL.
[2024-11-11] MEDS: ROXICODONE 5 MG PO (04:03)
--- NOTE | 2024-11-11 04:03 | W.PN.CT ---
Today's Communication / Plan
-
Plan:
-No major issues overnight. Hemodynamically and neurologically stable
-Off all drips
-Required A/V pacing postop d/t bradycardia. Pt's current intrinsic rhythm is NSR @ 72 bpm this AM. Tolerating resumption of BB, will resume Amiodarone @ 200 mg BID.
-Consider d/c of temporary PW (pull)
-Consider d/c of remaining chest tubes: 2meds . CXR this AM looks clear with mild basilar atelectasis on my review. F/U official report
-Cont. current meds (ASA, Plavix, Lipitor, Flomax, Finasteride, Norvasc for radial artery patency, Amiodarone and Toprol XL)
-D/C'd romo catheter this AM @ 0600
-Maintain cordis another day
-Encourage use of IS
-Wean off of O2 as tolerated
-OOB into chair/Ambulate
-Home in 1-2 days
Assessment / Plan
-
Assessment:
-S/p Standard sternotomy/CABG X 4 (In situ FROST to LAD, Ao to left radial to OM, Ao to RSVG to acute marginal sequential to RPDA)/Harvesting of internal mammary artery/Endoscopic vein harvesting of right lower extremity and endoscopic harvest of the
left radial artery/Aortoplasty with bovine pericardial patch due to extensive calcification, atherosclerotic disease and focal dissection of the ascending aorta/ Left atrial appendage exclusion (35 mm device), by Dr. England, 11/09/24, pod#2
-Extensive three-vessel coronary artery disease
-LVEF 55-60% per intraop PEPITO
-Mildly dilated mid asc. aorta (3.8 cm)
-Moderate calcified atheroma @ desc. aorta and distal arch
-Significant calcification @ proximal asc. aorta
-Current tobacco abuse
-COPD
-Class 1 obesity (BMI 30)
-Hypertension
-Hyperlipidemia
-Peripheral artery disease with claudication
-Pulmonary nodules
-Hearing impaired (does not wear hearing aides)
-Hx cardiac arrest S/P bystander CPR
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
-S/P Placement of intracranial shunt towards the abdomen for hydrocephalus
-Acute postop blood loss/Anemia (stable without blood transfusion)
-Acute postop thrombocytopenia (stable without active bleed)
-Acute postop atelectasis
-Acute postop hypovolemia with subsequent hypervolemia
-Acute postop temporary pacer dependent d/t bradycardia
Discussed patient care with: Cardiology, Nursing, Respiratory Therapy, Pharmacy and Care Team
Subjective
Procedure
S/p Standard sternotomy/CABG X 4 (In situ FROST to LAD, Ao to left radial to OM, Ao to RSVG to acute marginal sequential to RPDA)/Harvesting of internal mammary artery/Endoscopic vein harvesting of right lower extremity and endoscopic harvest of the
left radial artery/Aortoplasty with bovine pericardial patch due to extensive calcification, atherosclerotic disease and focal dissection of the ascending aorta/ Left atrial appendage exclusion (35 mm device), by Dr. England, 11/09/24
-
Date of Service: November 11, 2024
Pt c/o pleuritic chest pain, otherwise feels well
Objective Data
-
PT 18.3 Sec (11.4-14.6) H 11/09/24 12:33
INR 1.50 11/09/24 12:33
APTT 29.5 Sec (23.4-35.0) 11/09/24 12:33
Vital Signs
Vital Signs
Temp Pulse Resp BP Pulse Ox
98.5 F 86 14 119/67 91
11/11/24 00:00 11/11/24 03:48 11/11/24 00:00 11/11/24 03:48 11/11/24 03:48
CT Intake/Output/Weight
11/10/24 11/10/24 11/11/24
06:59 18:59 06:59
Intake Total 431.2 / 813.0 628.0 / 728.0 100 / 728.0
Output Total / 5 503 / 908 405 / 908
Balance -458.8 / -1232.0 125.0 / -180.0 -305 / -180.0
SaO2: 92 (2L)
Physical Exam
-
General: Awake, Oriented and AOx3
Cardiovascular: Regular rate & rhythm, No Murmurs and No Gallop
Respiratory: Decreased Breath Sounds (at bases, otherwise clear)
Sternum: Stable
Incision: Clean, Dry, Intact and Dressing Intact
Extremities: Other (+trace edema)
Data Reviewed
-
Lab Results: Results Reviewed
Medications: Active Meds Reviewed
Chest X-Ray: Report Reviewed and Image Reviewed
ECG: Report Reviewed and Image Reviewed
--- NOTE | 2024-11-11 04:06 | PTCARENOTE ---
no acute changes. VSS. AM labs collected and sent. c/o pain, see NOV.
[2024-11-11 04:31] LABS: Hemoglobin 9.6 g/dL (13.0-18.0); Mean Corp Hgb Conc. 33.1 g/dL (33.0-37.0); Mean Corpuscular Hgb 30.2 pg (27.0-31.0); Mean Corpuscular Volume 91.2 fL (80.0-94.0); Mean Platelet Volume 10.5 fL (7.4-10.4); Platelet Count 147 10^3/uL (130-400); Red Blood Cell Count 3.18 10^6/uL (4.70-6.10); Red Cell Dist. Width 13.5 % (11.5-14.5); White Blood Cell Count 14.2 10^3/uL (4.8-10.8)
[2024-11-11 05:13] LABS: Blood Urea Nitrogen 32 mg/dl (9-20); Calcium 8.3 mg/dl (8.4-10.2); Carbon Dioxide 27 mmol/L (22-30); Chloride 104 mmol/L (98-107); Estimated Creatinine Clearance 81 ml/min; Glucose 127 mg/dl (70-99); Magnesium 2.1 mg/dl (1.6-2.3); Potassium 4.2 mmol/L (3.5-5.1); Sodium 137 mmol/L (135-145); eGFR > 60.00
[2024-11-11] MEDS: TYLENOL 1000 MG PO ×3 (05:21→20:23)
--- NOTE | 2024-11-11 08:00 | PTCARENOTE ---
Resumed care of patient. Pt assessed while he was sitting in the chair. Pt alert and oriented x4. Pt rates sternal pain 2/10. Denies nausea and shortness of breath. GAN with equal strength throughout. 1 assist to ambulate to the bathroom. NSR on
tele with rates in the 80s. BP 117/66. No rub noted. Right radial, left ulnar pulses palpable. Bilateral DP pulses present via doppler. +1 generalized edema noted. Epicardial AV wires insulated. POX 93% on 2L NC, titrated to RA, POX 90%. Lungs with
crackles in b/l bases. Occasional moist nonproductive cough. IS encouraged-1000mL achieved. Mediastinal chest tubes x2 to -20cm suction draining dark red fluid. No air leak, tidaling, crepitus noted. Abdomen soft, round, nontender. +BS +gas. Pt due
to void post romo removal. Sternal incision approximated and HEATING AND BLENDING SUPERVISOR. Chest tube dressing CDI. Right groin puncture site approximated, HEATING AND BLENDING SUPERVISOR. Right SVG harvest approximated VICKIE. Left radial harvest incision approximated and VICKIE. Left IJ cordis intact.
Right forearm 18g PIV intact. See MAR for medication administration. See worklist for complete nursing assessment. Plan of care reviewed and patient in agreement.
[2024-11-11] MEDS: BACTROBAN 2% OINTMENT 1 APPLIC NASAL ×2 (08:20→19:43)
[2024-11-11] MEDS: LOW STRENGTH ASPIRIN 81 MG PO (08:21)
[2024-11-11] MEDS: NEURONTIN 100 MG PO ×3 (08:21→20:23)
[2024-11-11] MEDS: LIDOCAINE 4% PATCH 1 PATCH TOPICAL (08:21)
[2024-11-11] MEDS: PROTONIX 40 MG PO (08:21)
[2024-11-11] MEDS: PACERONE 200 MG PO ×2 (08:21→20:23)
[2024-11-11] MEDS: SENOKOT-S 1 TABLET PO ×2 (08:21→19:43)
[2024-11-11] MEDS: TOPROL XL 12.5 MG PO ×2 (08:21→20:23)
[2024-11-11] MEDS: MAGNESIUM OXIDE 500 MG PO ×2 (08:21→19:43)
[2024-11-11] MEDS: PLAVIX 75 MG PO (08:22)
[2024-11-11] MEDS: NORVASC 2.5 MG PO (08:22)
--- NOTE | 2024-11-11 09:45 | PTCARENOTE ---
CT PREDICTIVE MAINTENANCE TECHNICIAN at bedside to pull AV epicardial wires. Pt tolerated. Bedrest for 1 hr, q15 vitals cycling. No significant dump from chest tubes immediately after pulling.
[2024-11-11] MEDS: NSS IV (09:57)
--- NOTE | 2024-11-11 11:00 | PTCARENOTE ---
Pt reassessed. NSR on tele with rates in the 80s. BP 133/71. POX 93% on 2L NC. Mediastinal chest tubes x2 d/c per orders. pt tolerated. Assisted OOB to chair. Pt voided 100ml bhanu urine in the urinal. No other acute changes from previous
assessment.
[2024-11-11] MEDS: NSS 500 IV (16:25)
--- NOTE | 2024-11-11 16:30 | PTCARENOTE ---
Pt reassessed. Pt sitting in the chair. NSR on tele with rates in the 80s. BP 100/61. POX 92% on RA. Surgical sites stable. Pt bladder scanned for 280ml, then patient voided 275ml Rupinder urine. Ambulated in the dao 200' and tolerated. Awaiting
dinner.
[2024-11-11] MEDS: FLOMAX 0.8 MG PO (17:57)
[2024-11-11] MEDS: PROSCAR 5 MG PO (17:57)
--- NOTE | 2024-11-11 20:00 | PTCARENOTE ---
assumed care of pt from previous RN. pt A&Ox4, resting in chair at time of assessment. SR on tele-monitor. POX 93% on RA. abd s/n, +BS. all surgical sites stable, CDI. L IJ cordis w/ KVO. PIV intact. see worklist for complete nursing assessment,
interventions, VS, and I&Os.
[2024-11-11] MEDS: LIPITOR 80 MG PO (20:23)
--- NOTE | 2024-11-11 21:15 | PTCARENOTE ---
POX 90-91% on RA while laying in bed. pt placed on [address] PA Caryn.
[2024-11-12] VITALS (16 sets, daily range): BP systolic 94–159; BP diastolic 62–143; PULSE 83; O2SAT 95–96; BMI 28.5
--- NOTE | 2024-11-12 | PTCARENOTE ---
assessment remains unchanged. VSS.
[2024-11-12 04:06] LABS: Hematocrit 28.1 % (39.0-52.0); Hemoglobin 9.6 g/dL (13.0-18.0); Mean Corp Hgb Conc. 34.2 g/dL (33.0-37.0); Mean Corpuscular Hgb 30.6 pg (27.0-31.0); Mean Corpuscular Volume 89.5 fL (80.0-94.0); Mean Platelet Volume 10.8 fL (7.4-10.4); Platelet Count 160 10^3/uL (130-400); Red Blood Cell Count 3.14 10^6/uL (4.70-6.10); Red Cell Dist. Width 13.4 % (11.5-14.5); White Blood Cell Count 16.3 10^3/uL (4.8-10.8)
--- NOTE | 2024-11-12 04:29 | W.PN.CT ---
Today's Communication / Plan
-
Plan:
-No major issues overnight. Hemodynamically and neurologically stable
-Off all drips
-Required A/V pacing postop d/t bradycardia. Pt's current intrinsic rhythm is NSR @ 82 bpm. Tolerating resumption of BB and Amiodarone
-D/C cordis
-Cont. current meds (ASA, Plavix, Lipitor, Flomax, Finasteride, Norvasc for radial artery patency, Amiodarone and Toprol XL)
-Encourage use of IS
-Wean off of O2 as tolerated
-OOB into chair/Ambulate
-Home likely tomorrow
Assessment / Plan
-
Assessment:
-S/p Standard sternotomy/CABG X 4 (In situ FROST to LAD, Ao to left radial to OM, Ao to RSVG to acute marginal sequential to RPDA)/Harvesting of internal mammary artery/Endoscopic vein harvesting of right lower extremity and endoscopic harvest of the
left radial artery/Aortoplasty with bovine pericardial patch due to extensive calcification, atherosclerotic disease and focal dissection of the ascending aorta/ Left atrial appendage exclusion (35 mm device), by Dr. England, 11/09/24, pod#2
-Extensive three-vessel coronary artery disease
-LVEF 55-60% per intraop PEPITO
-Mildly dilated mid asc. aorta (3.8 cm)
-Moderate calcified atheroma @ desc. aorta and distal arch
-Significant calcification @ proximal asc. aorta
-Current tobacco abuse
-COPD
-Class 1 obesity (BMI 30)
-Hypertension
-Hyperlipidemia
-Peripheral artery disease with claudication
-Pulmonary nodules
-Hearing impaired (does not wear hearing aides)
-Hx cardiac arrest S/P bystander CPR
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
-S/P Placement of intracranial shunt towards the abdomen for hydrocephalus
-Acute postop blood loss/Anemia (stable without blood transfusion)
-Acute postop thrombocytopenia (stable without active bleed)
-Acute postop atelectasis
-Acute postop hypovolemia with subsequent hypervolemia
-Acute postop temporary pacer dependent d/t bradycardia
Discussed patient care with: Cardiology, Nursing, Respiratory Therapy, Pharmacy and Care Team
Subjective
Procedure
S/p Standard sternotomy/CABG X 4 (In situ FROST to LAD, Ao to left radial to OM, Ao to RSVG to acute marginal sequential to RPDA)/Harvesting of internal mammary artery/Endoscopic vein harvesting of right lower extremity and endoscopic harvest of the
left radial artery/Aortoplasty with bovine pericardial patch due to extensive calcification, atherosclerotic disease and focal dissection of the ascending aorta/ Left atrial appendage exclusion (35 mm device), by Dr. England, 11/09/24
-
Date of Service: November 12, 2024
Pt c/o mild incisional pain, otherwise feels well
Objective Data
-
Lab Results
11/12/24 03:36
PT 18.3 Sec (11.4-14.6) H 11/09/24 12:33
INR 1.50 11/09/24 12:33
APTT 29.5 Sec (23.4-35.0) 11/09/24 12:33
Vital Signs
Vital Signs
Temp Pulse Resp BP Pulse Ox
98.6 F 88 20 126/69 96
11/12/24 03:48 11/12/24 03:36 11/12/24 03:48 11/12/24 03:36 11/12/24 03:48
CT Intake/Output/Weight
11/11/24 11/11/24 11/12/24
06:59 18:59 06:59
Intake Total 120 / 748.0 570 / 690 120 / 690
Output Total 535 / 1038 445 / 1220 775 / 1220
Balance -415 / -290.0 125 / -530 -655 / -530
SaO2: 96 (2L)
Physical Exam
-
General: Awake, Oriented and AOx3
Cardiovascular: Regular rate & rhythm, No Murmurs, No Rub and No Gallop
Respiratory: Decreased Breath Sounds (at bases, otherwise clear)
Sternum: Stable
Incision: Clean, Dry, Intact and Dressing Intact
Extremities: Other (+trace edema)
Data Reviewed
-
Lab Results: Results Reviewed
Medications: Active Meds Reviewed
Chest X-Ray: Report Reviewed and Image Reviewed
ECG: Report Reviewed and Image Reviewed
[2024-11-12 04:36] LABS: Blood Urea Nitrogen 26 mg/dl (9-20); Calcium 8.3 mg/dl (8.4-10.2); Carbon Dioxide 28 mmol/L (22-30); Chloride 107 mmol/L (98-107); Estimated Creatinine Clearance 81 ml/min; Glucose 130 mg/dl (70-99); Magnesium 2.3 mg/dl (1.6-2.3); Potassium 4.2 mmol/L (3.5-5.1); Sodium 139 mmol/L (135-145); eGFR > 60.00
[2024-11-12] MEDS: TYLENOL 1000 MG PO ×3 (06:21→22:43)
--- NOTE | 2024-11-12 07:45 | PTCARENOTE ---
Received pt from sharepoint administrator RN; pt AAOx3 and resting comfortably in chair; NSR on monitor and VSS; LIJ cordis and PIV x1 patent; Lungs diminished; IS to 1250; positive bowel sounds; pt voiding clear yellow urine; weak lower extremity pulses and
positive left radial and ulnar pulses; +1 lower extremity edema noted; all surgical sites C/D/I; see nursing documentation for further details.
+
--- NOTE | 2024-11-12 07:47 | W.PN.CD ---
Today's Communication / Plan
-
most recent sbp 96. Hold amlodipine and monitor
Impression / Plan
-
CAD - s/p CABG x 4 (FROST to LAD, left radial to OM, RSVG to acute marginal sequential to RPDA. Left atrial appendage exclusion #35 mm device) today 11/09/24.
remains in sinus
HTN - some lower pressures on 11/12/23 . BPs were in the low 100s this morning but most recent sbp 96. Hold amlodipine and monitor
HLD - on Lipitor, continue.
- LDL goal < 55.
Anemia - acute post-op, Slight trend down . Hb 9.6. monitor.
BPH - stable on meds.
H/o cardiac arrest due to subarachnoid hemorrhage due to JEN aneurysm s/p coiling (01/2024) with repeat coiling (08/2024) - stable, no residual deficits.
Physical Exam
Vital Signs/Labs
Vital Signs
Temp Pulse Resp BP Pulse Ox
98.6 F 82 20 122/75 96
11/12/24 03:48 11/12/24 06:23 11/12/24 03:48 11/12/24 06:23 11/12/24 06:00
11/11/24 11/12/24 11/13/24
06:59 06:59 06:59
Actual Weight 80.4 kg 80.1 kg
11/12/24 03:36
11/12/24 03:36
PT 18.3 Sec (11.4-14.6) H 11/09/24 12:33
INR 1.50 11/09/24 12:33
APTT 29.5 Sec (23.4-35.0) 11/09/24 12:33
Magnesium 2.3 mg/dl (1.6-2.3) 11/12/24 03:36
Physical Exam
Constitutional: No acute distress
Cardiovascular: Rhythm & rate is regular
Respiratory: Respiratory effort normal
GI: Soft
Neuro/Psych: Alert
Data Reviewed
-
Date of Service: November 12, 2024
Medical Decision Making: Reviewed Test Results
Medical Tests (PFT, Pathology etc): Report Reviewed by me
Labs: Labs Reviewed by me
[2024-11-12] MEDS: KCL 20 MEQ PO (07:55)
[2024-11-12] MEDS: PROTONIX 40 MG PO (07:55)
[2024-11-12] MEDS: NEURONTIN 100 MG PO ×3 (07:55→22:42)
[2024-11-12] MEDS: LOW STRENGTH ASPIRIN 81 MG PO (07:55)
[2024-11-12] MEDS: PACERONE 200 MG PO ×3 (07:55→22:42)
[2024-11-12] MEDS: LASIX 20 MG IV (07:56)
[2024-11-12] MEDS: BACTROBAN 2% OINTMENT 1 APPLIC NASAL ×2 (07:56→20:56)
[2024-11-12] MEDS: PLAVIX 75 MG PO (07:56)
[2024-11-12] MEDS: LIDOCAINE 4% PATCH 1 PATCH TOPICAL (08:00)
[2024-11-12] MEDS: SENOKOT-S PO ×2 (08:01→20:51)
[2024-11-12] MEDS: TOPROL XL PO (09:27)
[2024-11-12] MEDS: TOPROL XL 50 MG PO (09:37)
--- NOTE | 2024-11-12 11:45 | CM ---
Addendum entered by Es Jacques RN 11/12/24 16:57:
Patient confirmed he recently moved and his correct address is [address] [place] [address], [facility] [place] [id number]
Original Note:
Chart reviewed. Patient is independent of ADLS, lives with his in a [address] [facility] [place], [address], [address].. Plan is for the patient to return home with CT Transitional RN. CM to follow
--- NOTE | 2024-11-12 11:54 | PTCARENOTE ---
NSR on monitor and VSS: pt ambulating hallways; assessment unchanged.
--- NOTE | 2024-11-12 16:54 | PTCARENOTE ---
Assessment unchanged; NSR on monitor and VSS; pt ambulating room and awaiting dinner.
[2024-11-12] MEDS: FLOMAX 0.8 MG PO (17:04)
[2024-11-12] MEDS: PROSCAR 5 MG PO (17:04)
[2024-11-12] MEDS: MAGNESIUM OXIDE 500 MG PO (20:55)
[2024-11-12] MEDS: TOPROL XL 12.5 MG PO (20:56)
--- NOTE | 2024-11-12 21:00 | PTCARENOTE ---
Patient received eating dinner. Patient A+A+Ox3. No neurological deficits noted. No c/o pain or discomfort. Patient ambulates in room and to bathroom by self. Sternal precautions. Room air. SpO2 96%. Sinus Rhythm with BBC. Heart rate 80's.
No c/o chest pain, pressure or discomfort. Normoactive bowel sounds. No c/o nausea. No vomiting. No BM. Voiding without difficulty. Sternal incision intact - Surgical adhesive - Open to air. CT dressing intact. Right groin puncture site
intact. Right knee incision intact - Surgical adhesive - Open to air. Left radial graft site - Incisions intact - Surgical adhesive - Edema and ecchymotic - Positive circulation, sensation and mobility - Positive Ulnar pulse. Assessment as
documented.
[2024-11-12] MEDS: VENTOLIN NEBULES 1.25 MG INH (21:02)
[2024-11-12] MEDS: LIPITOR 80 MG PO (22:42)
--- NOTE | 2024-11-13 00:30 | PTCARENOTE ---
Patient sleeping without difficulty. No further changes from previous assessment.
[2024-11-13 03:50] VITALS: BP 122/72
[2024-11-13 04:08] LABS: Ionized Calcium 1.13 mMOL/L (1.15-1.33)
--- NOTE | 2024-11-13 04:18 | W.PN.CT ---
Today's Communication / Plan
-
Plan:
-No major issues overnight. Hemodynamically and neurologically stable
-Off all drips
-Required A/V pacing postop d/t bradycardia. Pt's current intrinsic rhythm is NSR @ 82 bpm. Tolerated increased Toprol XL to 50 mg Qdaily and Amiodarone
-Norvasc was held yesterday d/t low BP, will try resuming today
-F/U 2-view cxr
-Cont. current meds (ASA, Plavix, Lipitor, Flomax, Finasteride, Norvasc for radial artery patency, Amiodarone and Toprol XL)
-Gentle diuresis
-Encourage use of IS
-OOB into chair/Ambulate
-Home today
Assessment / Plan
-
Assessment:
-S/p Standard sternotomy/CABG X 4 (In situ FROST to LAD, Ao to left radial to OM, Ao to RSVG to acute marginal sequential to RPDA)/Harvesting of internal mammary artery/Endoscopic vein harvesting of right lower extremity and endoscopic harvest of the
left radial artery/Aortoplasty with bovine pericardial patch due to extensive calcification, atherosclerotic disease and focal dissection of the ascending aorta/ Left atrial appendage exclusion (35 mm device), by Dr. England, 11/09/24, pod#4
-Extensive three-vessel coronary artery disease
-LVEF 55-60% per intraop PEPITO
-Mildly dilated mid asc. aorta (3.8 cm)
-Moderate calcified atheroma @ desc. aorta and distal arch
-Significant calcification @ proximal asc. aorta
-Current tobacco abuse
-COPD
-Class 1 obesity (BMI 30)
-Hypertension
-Hyperlipidemia
-Peripheral artery disease with claudication
-Pulmonary nodules
-Hearing impaired (does not wear hearing aides)
-Hx cardiac arrest S/P bystander CPR
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
-S/P Placement of intracranial shunt towards the abdomen for hydrocephalus
-Acute postop blood loss/Anemia (stable without blood transfusion)
-Acute postop thrombocytopenia (stable without active bleed)
-Acute postop atelectasis
-Acute postop hypovolemia with subsequent hypervolemia
-Acute postop temporary pacer dependent d/t bradycardia
Discussed patient care with: Cardiology, Nursing, Respiratory Therapy, Pharmacy and Care Team
Subjective
Procedure
S/p Standard sternotomy/CABG X 4 (In situ FROST to LAD, Ao to left radial to OM, Ao to RSVG to acute marginal sequential to RPDA)/Harvesting of internal mammary artery/Endoscopic vein harvesting of right lower extremity and endoscopic harvest of the
left radial artery/Aortoplasty with bovine pericardial patch due to extensive calcification, atherosclerotic disease and focal dissection of the ascending aorta/ Left atrial appendage exclusion (35 mm device), by Dr. England, 11/09/24
-
Date of Service: November 13, 2024
Pt c/o mild incisional pain, otherwise feels well. Ambulating halls without difficulty
Objective Data
-
PT 18.3 Sec (11.4-14.6) H 11/09/24 12:33
INR 1.50 11/09/24 12:33
APTT 29.5 Sec (23.4-35.0) 11/09/24 12:33
Vital Signs
Vital Signs
Temp Pulse Resp BP Pulse Ox
99.5 F 74 18 122/72 94
11/12/24 22:35 11/13/24 04:00 11/12/24 22:35 11/13/24 03:50 11/13/24 04:00
CT Intake/Output/Weight
11/12/24 11/12/24 11/13/24
06:59 18:59 06:59
Intake Total 120 / 690 480 / 720 240 / 720
Output Total 775 / 1220 600 / 800 200 / 800
Balance -655 / -530 -120 / -80 40 / -80
SaO2: 94 (RA)
Physical Exam
-
General: Awake, Oriented and AOx3
Cardiovascular: Regular rate & rhythm, No Murmurs, No Rub and No Gallop
Respiratory: Decreased Breath Sounds (at bases, otherwise clear)
Sternum: Stable
Incision: Clean, Dry, Intact and Dressing Intact
Extremities: Other (+trace edema)
Data Reviewed
-
Lab Results: Results Reviewed
Medications: Active Meds Reviewed
Chest X-Ray: Report Reviewed and Image Reviewed
ECG: Report Reviewed and Image Reviewed
[2024-11-13 04:29] LABS: Hematocrit 26.2 % (39.0-52.0); Hemoglobin 8.6 g/dL (13.0-18.0); Mean Corp Hgb Conc. 32.8 g/dL (33.0-37.0); Mean Corpuscular Hgb 30.3 pg (27.0-31.0); Mean Corpuscular Volume 92.3 fL (80.0-94.0); Mean Platelet Volume 10.5 fL (7.4-10.4); Platelet Count 166 10^3/uL (130-400); Red Blood Cell Count 2.84 10^6/uL (4.70-6.10); Red Cell Dist. Width 13.4 % (11.5-14.5); White Blood Cell Count 10.5 10^3/uL (4.8-10.8)
--- NOTE | 2024-11-13 04:30 | PTCARENOTE ---
Patient A+A+Ox3. No neurological deficits noted. No c/o pain or discomfort. AM labs collected and sent. [facility] bath and linens changed. Patient ambulating to bathroom by self - Brushed teeth and washed face. OOB in chair. Standing scale weight
79.3 kg. Assessment/Interventions as documented.
[2024-11-13 04:58] VITALS: BMI 28.2
[2024-11-13 04:59] LABS: Blood Urea Nitrogen 31 mg/dl (9-20); Calcium 8.4 mg/dl (8.4-10.2); Carbon Dioxide 29 mmol/L (22-30); Chloride 108 mmol/L (98-107); Estimated Creatinine Clearance 81 ml/min; Glucose 113 mg/dl (70-99); Magnesium 2.3 mg/dl (1.6-2.3); Potassium 4.1 mmol/L (3.5-5.1); Sodium 141 mmol/L (135-145); eGFR > 60.00
[2024-11-13] MEDS: LASIX 20 MG IV (05:08)
[2024-11-13] MEDS: KCL 20 MEQ PO (05:08)
[2024-11-13 05:11] VITALS: BP 113/70
[2024-11-13] MEDS: TYLENOL PO (05:27)
[2024-11-13 07:46] VITALS: BP 123/75
[2024-11-13] MEDS: PLAVIX 75 MG PO (08:18)
[2024-11-13] MEDS: LOW STRENGTH ASPIRIN 81 MG PO (08:18)
[2024-11-13] MEDS: ROXICODONE 2.5 MG PO (08:18)
[2024-11-13] MEDS: BACTROBAN 2% OINTMENT 1 APPLIC NASAL (08:18)
[2024-11-13] MEDS: PACERONE 200 MG PO (08:19)
[2024-11-13] MEDS: MAGNESIUM OXIDE 500 MG PO (08:19)
[2024-11-13] MEDS: PROTONIX 40 MG PO (08:19)
[2024-11-13] MEDS: TOPROL XL 50 MG PO (08:19)
[2024-11-13] MEDS: NEURONTIN 100 MG PO (08:19)
[2024-11-13] MEDS: NORVASC 2.5 MG PO (08:19)
--- NOTE | 2024-11-13 08:19 | W.DCSUMMARY ---
Discharge Summary
Discharge Data
Date of Admission: 11/09/24
Date of Discharge: 11/13/24
Total time spent discharging patient (in min): 45
-
Pending Results: No
Hospital Course
Primary care physician:
Dr. Isauro Francisco
Outpatient projection engineer:
Dr. Durand
Inpatient consultants:
CBC, splitter hand
Procedures:
1. Multi arterial coronary artery bypass grafting x 4 (In situ FROST to LAD, Ao to left radial to OM, Ao to RSVG to acute marginal sequential to RPDA) and Aortoplasty with bovine pericardial patch due to extensive calcification, atherosclerotic
disease and focal dissection of the ascending aorta
Primary Diagnosis:
1. Multivessel Coronary Artery Disease
Secondary Diagnoses:
1. Acute postop blood loss/Anemia
2. 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
3. Placement of intracranial shunt towards the abdomen for hydrocephalus
4. Tobacco abuse
5. Obesity
6. COPD
7. Hypertension
8. Hyperlipidemia
9. Peripheral artery disease
10. Pulmonary nodules
HPI: 69-year-old male with significant peripheral vascular disease. He also recently had a subarachnoid aneurysm that underwent coiling due to subarachnoid hemorrhage. He developed hydrocephalus post procedurally and required an intracranial
shunt that is now draining down toward his abdomen. His left heart cath was done due to an abnormal stress test as part of his preoperative workup and he was found to have significant triple-vessel coronary artery disease. He presented electively
on 11/[address] England.
Hospital course:
Patient presented electively to [facility] on 11/09 for coronary artery bypass with Dr. England. Postoperatively he returned to the CVICU for the remainder of his recovery on Cardene, Levophed, insulin, and Precedex. Patient was weaned off
Precedex and extubated by 1500 and Levophed was weaned off and Cardene was maintained for his radial artery harvest graft. On 11/10 postoperative day 1 patient was Delined and he was out of bed into the chair. He had decreased urine output and was
given 500 cc of lactated Ringer's and urine output improved. Patient's insulin drip was discontinued and he was downgraded to telemetry. On 11/11 postoperative day 2, patient's mediastinal chest tubes were pulled along with epicardial wires. Left
radial site was observed to have a hematoma but stable. On 11/12 postoperative day 3 patient's systolic blood pressures were in the 90s so Norvasc was held blood pressure improved and metoprolol was increased to [address] England. On 11/13
postoperative day 4, Norvasc was resumed and patient was tolerating the higher dose of Toprol. 2 view chest x-ray remained stable. Patient will get a repeat CBC/BMP on Thursday 11/16. He was deemed stable for discharge home.
Home medication changes:
see below
Discharge Plan
-
Patient Disposition: Home (Routine Discharge)
Discharge Diagnosis/Procedures: CABG, left atrial appendage clip
Condition: Good
Diet: Low Cholesterol and Low Sodium
Activity: No strenuous activity
Driving Restrictions: Not until seen by your Dr
Bathing Restrictions: OK to Shower
Blood Work: bmp/cbc on thursday 11/16
Other Services: Cardiac Rehab
Specialty Instructions: Weigh Daily- Call MD for wt gain/loss 3 lbs overnight/5 lbs in 1 week
Activity Restrictions/Additional Instructions:
Please call [facility] to schedule your first visit at [phone]
ACTIVITY:
-No strenuous activity: no heavy lifting, pushing, pulling anything over 15 pounds for one month
-continue to use stairs as tolerated
DRIVING RESTRICTIONS:
-No driving for one month or until approved by your surgeon
WOUND CARE:
-Shower daily. Use soap & water.
-No lotions, creams or powders on incision area.
DIET:
-continue a low fat/low cholesterol diet.
-IF you are diabetic, continue carb controlled diet.
CARDIAC REHAB:
-Please make appointment to start in 5-6 weeks with your local hospital program. (See Cardiac Rehabilitation Discharge Booklet).
SPECIALTY INSTRUCTIONS:
-Weigh yourself daily. Call your physician for any weight gain/loss of 3 lbs overnight or 5 lbs in one week.
-REPORT any clicking noise or uneven appearance of your sternum to your surgeon immediately.
-If you smoke, you are instructed to quit. The [place] smoking hotline phone number is [phone]
Referrals:
CT Transitional Care Nurse [Outside] - in one to two days
(
The Cardiothoracic Transitional Care Nurse will call you to set up a visit in 1-2 days.)
Bridger Durand DPM [Specified Professional Personl] - 12/19/24 9:10 am
(Address : [facility]
[address] [place] [address],
[facility] [address]
Phone number is [phone])
Ramses England MD [Active] - 12/10/24 1:45 pm
UNKNOWN - PT NOT,INTERVIEWE [Unknown Provider] -
Additional Discharge Medication Instructions: please note that your dose of atorvastatin and metoprolol succinate has increased.
Please do not resume your lisinopril until directed by a medical professional
Prescriptions:
New
atorvastatin 80 mg Tablet
80 mg PO HS Qty: 60 0RF
acetaminophen 325 mg Tablet
650 mg PO Q4HPRN PRN (Reason: mild pain,headache,temp >101F ) Qty: 0 0RF
metoprolol succinate 50 mg Tablet Extended Release 24 Hr
50 mg PO DAILY Qty: 60 0RF
amlodipine 2.5 mg Tablet
2.5 mg PO DAILY Qty: 60 3RF
clopidogrel 75 mg Tablet
75 mg PO DAILY Qty: 30 0RF
pantoprazole 40 mg Tablet,Delayed Release (Dr/Ec)
40 mg PO DAILY Qty: 30 0RF
oxycodone 5 mg Tablet
2.5 mg PO Q4HPRN PRN (Reason: severe pain) Qty: 10 0RF
Continued
aspirin 81 mg Tablet,Delayed Release (Dr/Ec)
81 mg PO DAILY
tamsulosin 0.4 mg Capsule
0.8 mg PO QPM
finasteride 5 mg Tablet
5 mg PO QPM
Centrum Silver Men [id number] mcg Tablet
1 tab PO DAILY
Discontinued
atorvastatin 40 mg Tablet
40 mg PO HS
lisinopril 20 mg Tablet
20 mg PO HS
metoprolol succinate 25 mg Tablet Extended Release 24 Hr
25 mg PO DAILY
Discharge Orders:
Discharge Patient (As Directed); Ordered 11/13/24
Ordered By: Linda Ramesh
Care Plan Goals
Care Plan Goals:
Problem: Readiness for enhanced knowledge related to diagnosis and treatment plan
Goal: Understand your diagnosis and treatment plan needs, including medications if applicable.
Instructions: Know your diagnosis, underlying causes and treatment plan options, including medications if applicable. Consult with your health care team to learn about your diagnosis and treatment plan, including medications if applicable.
Discharge Date and Time
Print Language: ROMANSH
[2024-11-13] MEDS: LIDOCAINE 4% PATCH TOPICAL (08:28)
[2024-11-13] MEDS: SENOKOT-S PO (08:29)
--- NOTE | 2024-11-13 08:41 | W.[place]-PDMP ---
[place]-PD[place]
-
Checked the [place]- Prescription Drug Monitoring Program website, no red flags identified; safe to proceed with prescription.
--- NOTE | 2024-11-13 08:49 | PTCARENOTE ---
Patient received from manager shift resting oob in chair, AAO X 3, c/o mild pain, see MAR. NSR via cm, SaO2 @ 94% on RA. All procedural sites stable. Patient updated to plan of care for the day, including pending d/c home, in agreement. See work list
for full assessment and interventions performed.
[2024-11-13] MEDS: CALCIUM GLUCONATE 100 IV (09:30)
[2024-11-13 09:33] VITALS: BP 116/92
[2024-11-13] MEDS: NSS IV (09:33)
[2024-11-13 10:08] VITALS: BP 116/92; BP 130/120; PULSE 82; O2SAT 92; O2SAT 95
[2024-11-13 10:48] VITALS: BP 131/85
--- NOTE | 2024-11-13 11:23 | PTCARENOTE ---
Discharge instructions thoroughly reviewed w/patient and spouse, all questions answered. Patient offered to shower and educated on importance of daily showers - patient expressed wish to shower at home. Patient encouraged to shower before d/c, w/ROXANA
Gadiel to bedside to reinforced. Patient insistent on showering at home. Nursing educated patient on safety protocols of showering. PIV removed. Patient transported via wheelchair to waiting vehicle for d/c home with .
--- NOTE | 2024-11-18 11:47 | W.PN.UPDATE ---
Update Note
Progress Note Update
The patient called stating that he is out of oxycodone and it really helps him sleep at night. He was discharged 5 days ago on POD #4 s/p CABG with Dr. England. I did inform him that any future narcotic refill requests would have to go through his PCP.
I sent in a new script for 7 additional oxycodone tablets to his preferred pharmacy. He may take 2.5-5 mg Q6H PRN for severe pain.
--- NOTE | 2024-11-19 11:09 | OID.L.PAT ---
Pulmonary Nodule Pat Letter
- -
11/19/24
KRISTINA GRAF
[id number] [facility]
[place] [address]
Velia ACEVEDO,
A pulmonary nodule was seen on an imaging study done by [facility]. This was reviewed by the [facility] Pulmonary Nodule Advisory Board and the following recommendation was made:
Recommendation: Follow up CT Chest in 3 months and follow up with a Combiner Operator
If you have any questions, please do not hesitate to contact your primary care physician. If you are in need of a Physician, you can go to [email or web address] and click on 'Find a Provider'. Type 'Family Medicine' in the search.
Oncology Nurse Navigator
[facility]
[phone]
--- NOTE | 2024-11-19 11:10 | OID.L.REC ---
Pulmonary Nodule Follow Up
- Recommendation
11/19/24
Pulmonary Nodule Review Recommendations
Your patient, KRISTINA GRAF, had a pulmonary nodule seen on an imaging study done on 11/07/24 in the [facility] Department.
This was reviewed by the [facility] Pulmonary Nodule Advisory Board and the following recommendation was made:
Recommendation: Follow up CT Chest in 3 months and follow up with a Bindery Machine Setter
If you have any questions please do not hesitate to contact us.
Sincerely,
Oncology Nurse Navigator
[facility]
[phone]
== END 2024-11-13 11:46 | disposition home or self-care (01) | DRG 219 ==
LOC: CVICU 05:17
PROVIDERS: Anesthesiology; Nurse Practitioner; ADMITTING PHYSICIAN Thoracic Surgery (Cardiothoracic Vascular Surgery); CONSULT PHYSICIAN Internal Medicine Critical Care Medicine; FAMILY PHYSICIAN Student in an Organized Health Care Education/Training Program
PROC: 5A1221Z Performance of Cardiac Output, Continuous (ICD-10-PCS; 2024-11-09)
PROC: 02100AW Bypass Coronary Artery, One Artery from Aorta with Autologous Arterial Tissue, Open Approach (ICD-10-PCS; 2024-11-09)
PROC: B24BZZ4 Ultrasonography of Heart with Aorta, Transesophageal (ICD-10-PCS; 2024-11-09)
PROC: 02RX08Z Replacement of Thoracic Aorta, Ascending/Arch with Zooplastic Tissue, Open Approach (ICD-10-PCS; 2024-11-09)
PROC: 02100Z9 Bypass Coronary Artery, One Artery from Left Internal Mammary, Open Approach (ICD-10-PCS; 2024-11-09)
PROC: 03BC4ZZ Excision of Left Radial Artery, Percutaneous Endoscopic Approach (ICD-10-PCS; 2024-11-09)
PROC: 021109W Bypass Coronary Artery, Two Arteries from Aorta with Autologous Venous Tissue, Open Approach (ICD-10-PCS; 2024-11-09)
PROC: 02L70CK Occlusion of Left Atrial Appendage with Extraluminal Device, Open Approach (ICD-10-PCS; 2024-11-09)
PROC: 02UX08Z Supplement Thoracic Aorta, Ascending/Arch with Zooplastic Tissue, Open Approach (ICD-10-PCS; 2024-11-09)
PROC: 06BP4ZZ Excision of Right Saphenous Vein, Percutaneous Endoscopic Approach (ICD-10-PCS; 2024-11-09)
DX: I25.10 Atherosclerotic heart disease of native coronary artery without angina pectoris (principal); I71.010 Dissection of ascending aorta; D62 Acute posthemorrhagic anemia; J98.11 Atelectasis; I70.0 Atherosclerosis of aorta; J44.9 Chronic obstructive pulmonary disease, unspecified; E78.5 Hyperlipidemia, unspecified; I10 Essential (primary) hypertension; E66.9 Obesity, unspecified; N40.0 Benign prostatic hyperplasia without lower urinary tract symptoms; F17.210 Nicotine dependence, cigarettes, uncomplicated; E66.811 Obesity, class 1; I70.209 Unspecified atherosclerosis of native arteries of extremities, unspecified extremity; D69.59 Other secondary thrombocytopenia; E86.1 Hypovolemia; E87.70 Fluid overload, unspecified; R00.1 Bradycardia, unspecified; Z68.30 Body mass index [BMI] 30.0-30.9, adult; Z79.82 Long term (current) use of aspirin; Z79.899 Other long term (current) drug therapy; Z82.49 Family history of ischemic heart disease and other diseases of the circulatory system; Z86.73 Personal history of transient ischemic attack (TIA), and cerebral infarction without residual deficits; Z86.74 Personal history of sudden cardiac arrest; Z98.2 Presence of cerebrospinal fluid drainage device
CPT/HCPCS: 36415; 71045; 71046; 71250; 80048; 80053; 81003; 81015; 82248; 82330; 82565; 82805; 82947; 82962; 83036; 83735; 84132; 84302; 84520; 85014; 85018; 85025; 85027; 85049; 85610; 85730; 86850; 86900; 86901; 86920; 87070; 87086; 93005; 93312; 93320; 93325; 93880; 93923; 93931; 94002; 94640; C1768